=== PATIENT | male | born 1955 ===

== ENCOUNTER 2016-12-16 10:26 | Inpatient (IN) | payer OTHER ==
[2016-12-16 10:27] VITALS: BMI 21.6
[2016-12-16] MEDS ORDERED: Sodium Chloride 0.9% 500 ML IV ONE ×2 (10:53→11:27)
[2016-12-16 11:19] LABS: VENOUS BLOOD GAS BASE EXCESS -1.5 mmol/L (0.0-2.0); VENOUS BLOOD GAS PCO2 47 mmHg (40-60); VENOUS BLOOD PH 7.33 (7.32-7.43)
--- NOTE | 2016-12-16 11:27 | C.PDOC ---
History Of Present Illness 61-year-old male, PMHx includes Anemia, Hypertension, Hypothyroidism and SBO, BIBA for evaluation of vomiting and diarrhea, associated with fever since yesterday. Hx obtained by sister on the phone, patient is mentally delayed & bed bound. Patient was given Tylenol for fever by family, but fever eventually returned. Sister states he has had a mild, non-productive cough. She denies rash, SOB, sick contacts, or other symptoms. Time Seen by Provider: 12/16/16 10:34 Chief Complaint (Nursing): Fever History Per: Family History/Exam Limitations: other (nonverbal, mentally delayed) Onset/Duration Of Symptoms: Days (1) Current Symptoms Are (Timing): Still Present Sick Contacts (Context): None Associated Symptoms: Fever, Chills, Nausea, Vomiting Severity: Mild Past Medical History Reviewed: Historical Data, Nursing Documentation, Vital Signs Vital Signs: Last Vital Signs Temp 98.6 F 12/19/16 01:26 Pulse 83 12/19/16 01:26 Resp 20 12/19/16 01:26 BP 124/66 12/19/16 01:26 Pulse Ox 97 12/19/16 01:26 - Medical History PMH: Anemia, HTN, Hypothyroidism, Obstructive Bowel, Pneumonia - [facility] Procedures CENTRAL VENOUS CATHETER PLACEMENT WITH GUIDANCE (08/28/13) DX ULTRASOUND-HEART (03/26/13) IMPACTED FECES REMOVAL (12/20/12) INFUSION OF VASOPRESSOR AGENT (08/28/13) OTH INCIDENT APPENDECTOMY (01/04/13) PACKED CELL TRANSFUSION (01/21/13) [id number] BOWEL NEC (01/04/13) VACCINATION NEC (01/05/15) VENOUS CATHETERIZATION NEC (10/20/13) Family History: States: No Known Family Hx - Social History Hx Tobacco Use: No Hx Alcohol Use: No Hx Substance Use: No - Immunization History Hx Tetanus Toxoid Vaccination: No Hx Influenza Vaccination: Yes Hx Pneumococcal Vaccination: Yes Review Of Systems Except As Marked, All Systems Reviewed And Found Negative. Constitutional: Positive for: Fever Respiratory: Positive for: Cough. Negative for: Shortness of Breath, Sputum Gastrointestinal: Positive for: Nausea, Vomiting, Diarrhea. Negative for: Abdominal Pain Genitourinary: Negative for: Dysuria, Hematuria, Rash Skin: Negative for: Rash Physical Exam - Physical Exam Appears: Non-toxic, No Acute Distress, Other (awake and alert) Skin: Warm, Dry, No Rash Head: Atraumatic, Normacephalic Eye(s): bilateral: Normal Inspection, EOMI Nose: Normal Oral Mucosa: Moist Throat: Normal, No Erythema, No Exudate Neck: Normal, Normal ROM Chest: Symmetrical Cardiovascular: Rhythm Regular Respiratory: Normal Breath Sounds, No Accessory Muscle Use, No Rales, No Rhonchi , No Wheezing Gastrointestinal/Abdominal: Normal Exam, Bowel Sounds, Soft, No Tenderness, No Distention, No Guarding, No Rebound, Other (midline well healed surgical scar) Male Genital: Other (diaper) Extremity: Normal ROM, No Deformity Pulses: Left Dorsalis Pedis: Normal, Right Dorsalis Pedis: Normal Neurological/Psych: Other (awake, alert, moving all 4 extremities spontaneously) ED Course And Treatment - Laboratory Results Result Diagrams: 12/17/16 06:09 12/17/16 06:09 O2 Sat by Pulse Oximetry: 98 (RA) Pulse Ox Interpretation: Normal - Other Rad CXR X-Ray: Viewed By Me, Read By Radiologist Interpretation: Accession No. : [id number]. Patient Name / ID : LEVI PRUETT / [id number]. Exam Date : 12/16/2016 10:48:10 ( Approved ). Study Comment : Sex / Age : M / 61Y. Creator : Iliana Nieves MD. Dictator : Iliana Nieves MD. [employer] Drilling Machine Operator : Screen Examiner : Iliana Nieves MD. Approver2 : Report Date : 12/16/2016 14:29:52. My Comment : . HISTORY: fever. COMPARISON: Chest x-ray performed 04/07/15. TECHNIQUE: Chest, one view. FINDINGS: LUNGS: Moderate left and mild right interstitial prominence may reflect infection or edema. Please note that chest x-ray has limited sensitivity for the detection of pulmonary masses. PLEURA: No significant pleural effusion identified. No definite pneumothorax . CARDIOVASCULAR: Cardiomegaly. Ectatic aorta. Atherosclerotic calcifications. OSSEOUS STRUCTURES: Osseous demineralization. Degenerative changes. VISUALIZED UPPER ABDOMEN: Unremarkable. OTHER FINDINGS: None. IMPRESSION: Moderate left and mild right interstitial prominence may reflect infection or edema. Cardiomegaly. Ectatic aorta. Atherosclerotic calcifications. - CT Scan/US CT ABD/PEL Other Rad Studies (CT/US): Read By Radiologist, Radiology Report Reviewed CT/US Interpretation: Accession No. : [id number]. Patient Name / ID : LEVI PRUETT / [id number]. Exam Date : 12/16/2016 12:45:39 ( Approved ). Study Comment : Sex / Age : M / 61Y. Creator : Iliana Nieves MD. Dictator : Iliana Nieves MD. [employer] Drilling Machine Operator : Screen Examiner : Iliana Nieves MD. Approver2 : Report Date : 12/16/2016 13:48:16. My Comment : . PROCEDURE: CT Abdomen and Pelvis without Oral or IV contrast. HISTORY: nausea/vomiting/diarrhea, fever. COMPARISON: CT abdomen and pelvis performed . TECHNIQUE: Contiguous axial images of the abdomen and pelvis. No oral or IV contrast administered. Coronal and Sagittal reformats generated and reviewed. Radiation dose: Total exam DLP = 226.82 mGy-cm. This CT exam was performed using one or more of the following dose reduction techniques: Automated exposure control, adjustment of the mA and/or kV according to patient size, and/or use of iterative reconstruction technique. FINDINGS: Examination markedly limited due to absence of oral or IV contrast as well as paucity of intra-abdominal and intrapelvic fat. LOWER THORAX: Bibasilar lower lobe consolidations. No visible pleural effusion or pneumothorax. Partially imaged heart demonstrates dense valvular calcifications. Small hiatal hernia. LIVER: Unremarkable unenhanced appearance. GALLBLADDER AND BILE DUCTS: Unremarkable unenhanced appearance. PANCREAS: Poorly visualized. Apparent atrophy. Otherwise grossly unremarkable. SPLEEN: Unremarkable unenhanced appearance. ADRENALS: Unremarkable unenhanced appearance. KIDNEYS AND URETERS : No hydronephrosis or obstructing renal calculus. BLADDER: Thick-walled under distended urinary bladder. Plate clinically including urinalysis. REPRODUCTIVE: Limited evaluation of the prostate gland. Recommend correlation with PSA. APPENDIX: No secondary signs of acute appendicitis. BOWEL: The stomach is nondistended. Lack of oral contrast limits evaluation for bowel pathology. Small abdominal wall hernia containing bowel with evidence of proximal bowel dilatation worrisome for obstruction. Correlate clinically. Regions of severe constipation. Distended fluid-filled and thick-walled rectum ; correlate clinically for proctitis and diarrheal illness. PERITONEUM: No significant free fluid. No definite free air. LYMPH NODES: No bulky lymphadenopathy identified. VASCULATURE: No aortic aneurysm. BONES: Mild degenerative changes. OTHER FINDINGS: Fat containing left inguinal hernia ; portion of the urinary bladder breaches inguinal hernia. IMPRESSION: Small abdominal wall hernia containing bowel with evidence of proximal bowel dilatation worrisome for obstruction. Correlate clinically. Regions of severe constipation. Distended fluid-filled and thick-walled rectum ; correlate clinically for proctitis and diarrheal illness. Bibasilar lower lobe consolidations. Progress Note: Bloodwork, CT Abd/Pel, EKG, CXR and UA ordered and reviewed. Patient given IV NS bolus, IV toradol. UA shows UTI, IV rocephin ordered. 12: 45-Code sepsis called. Patient has CHF history according to sister, and CXR appears congsted - will not give 30ml/kg bolus at this time. - Physician Consult Information Physician Contacted: Fina Matamoros Outcome Of Conversation: Discussed patient with Dr. Matamoros, she agrees with admission for fever, uti, sepsis, bandemia. Patient's vitals stable at this time, will admit to telemetry. Critical Care Time - Critical Care Note Total Time (in mins): 35 Documented critical care: time excludes all time spent performing seperately billable procedures. Disposition - Disposition Disposition Time: 13:09 Condition: FAIR - Clinical Impression Clinical Impression: UTI (urinary tract infection), Bandemia, Fever, Sepsis - Scribe Statement The provider has reviewed the documentation as recorded by the Liliana Morales All medical record entries made by the Scribe were at my direction and personally dictated by me. I have reviewed the chart and agree that the record accurately reflects my personal performance of the history, physical exam, medical decision making, and the department course for this patient. I have also personally directed, reviewed, and agree with the discharge instructions and disposition. Decision To Admit - Pt Status Changed To: Hospital Disposition Of: Inpatient - Admit Certification Admit to Inpatient:: After my assessment, the patient will require hospitalization for at least two midnights. This is because of the severity of symptoms shown, intensity of services needed, and/or the medical risk in this patient being treated as an outpatient. - InPatient: Physician Admission Certification:: SEE NOTES - . Bed Request Type: Telemetry Admitting Physician: Fina Mtaamoros Patient Diagnosis: Fever, Sepsis, UTI (urinary tract infection), Bandemia
[2016-12-16 11:57] LABS: BASO % 0.4 % (0.0-2.0); EOS % 0.1 % (0.0-4.0); HEMATOCRIT 42.4 % (35.0-51.0); LYMPH # 0.8 K/uL (1.0-4.3); MEAN CELL VOLUME 101.7 fL (80.0-94.0); MEAN CORPUSCULAR HEMOGLOBIN 34.3 pg (27.0-31.0); MEAN CORPUSCULAR HGB CONC 33.8 g/dL (33.0-37.0); MEAN PLATELET VOLUME 6.9 fL (7.2-11.7); MONO # 0.2 K/uL (0.0-0.8); MONO % 1.6 % (0.0-10.0); PLATELET COUNT 184 K/uL (130-400); RED CELL DISTRIBUTION WIDTH 13.6 % (11.5-14.5); WHITE BLOOD COUNT 9.5 K/uL (4.8-10.8)
[2016-12-16 12:06] LABS: CHLORIDE 97 mmol/L (98-107)
[2016-12-16 12:07] LABS: POTASSIUM 4.8 mmol/L (3.6-5.2); SODIUM 134 mmol/L (132-148)
[2016-12-16 12:09] LABS: ALB/GLOB RATIO 1.1 (1.0-2.1); AST/SGOT 49 U/L (17-59); BILIRUBIN,TOTAL 1.4 mg/dL (0.2-1.3); BLOOD UREA NITROGEN 16 mg/dL (9-20); CARBON DIOXIDE 25 mmol/L (22-30); GFR AFRICAN-AMERICAN > 60; TOTAL PROTEIN 8.2 g/dL (6.3-8.3)
[2016-12-16 12:10] LABS: ALKALINE PHOSPHATASE 65 U/L (38-126); ALT/SGPT 22 U/L (21-72); CALCIUM 9.4 mg/dl (8.6-10.4); GLUCOSE,RANDOM 110 mg/dL (75-110)
[2016-12-16 12:13] LABS: RBC URINE 2 /hpf (0-3); URINE BACTERIA MANY (<OCC); URINE BILIRUBIN NEGATIVE (NEGATIVE); URINE BLOOD 1+ (NEGATIVE); URINE COLOR Yellow (YELLOW); URINE GLUCOSE (UA) NORMAL (Normal); URINE KETONE NEGATIVE (NEGATIVE); URINE LEUKOCYTE ESTERASE 1+ Leu/uL (Negative); URINE PROTEIN NEGATIVE (NEGATIVE); URINE UROBILINOGEN NORMAL mg/dL (0.2-1.0); WBC URINE 33 /hpf (0-5)
[2016-12-16] MEDS ORDERED: cefTRIAXone IV 1 gm in Dextros 50 ML IV ONE (12:19)
[2016-12-16] MEDS ORDERED: cefTRIAXone IV 1 gm in Dextros 50 ML IVPB ONE (12:33)
[2016-12-16 12:41] LABS: EOSINOPHIL 2 % (0-4); NEUTROPHIL 69 % (50-75); TOTAL CELLS COUNTED 100
[2016-12-16] MEDS ORDERED: Sodium Chloride 0.9% 250 ML IV ONE ×3 (13:05→14:14)
--- NOTE | 2016-12-16 13:49 | CT ---
PROCEDURE: CT Abdomen and Pelvis without Oral or IV contrast. HISTORY: nausea/vomiting/diarrhea, fever COMPARISON: CT abdomen and pelvis performed 10/14/14 TECHNIQUE: Contiguous axial images of the abdomen and pelvis. No oral or IV contrast administered. Coronal and Sagittal reformats generated and reviewed. Radiation dose: Total exam DLP = 226.82 mGy-cm. This CT exam was performed using one or more of the following dose reduction techniques: Automated exposure control, adjustment of the mA and/or kV according to patient size, and/or use of iterative reconstruction technique. FINDINGS: Examination markedly limited due to absence of oral or IV contrast as well as paucity of intra-abdominal and intrapelvic fat. LOWER THORAX: Bibasilar lower lobe consolidations. No visible pleural effusion or pneumothorax. Partially imaged heart demonstrates dense valvular calcifications. Small hiatal hernia. LIVER: Unremarkable unenhanced appearance. GALLBLADDER AND BILE DUCTS: Unremarkable unenhanced appearance. PANCREAS: Poorly visualized. Apparent atrophy. Otherwise grossly unremarkable. SPLEEN: Unremarkable unenhanced appearance. ADRENALS: Unremarkable unenhanced appearance. KIDNEYS AND URETERS: No hydronephrosis or obstructing renal calculus. BLADDER: Thick-walled under distended urinary bladder. Plate clinically including urinalysis. REPRODUCTIVE: Limited evaluation of the prostate gland. Recommend correlation with PSA. APPENDIX: No secondary signs of acute appendicitis. BOWEL: The stomach is nondistended. Lack of oral contrast limits evaluation for bowel pathology. Small abdominal wall hernia containing bowel with evidence of proximal bowel dilatation worrisome for obstruction. Correlate clinically. Regions of severe constipation. Distended fluid-filled and thick-walled rectum ; correlate clinically for proctitis and diarrheal illness. PERITONEUM: No significant free fluid. No definite free air. LYMPH NODES: No bulky lymphadenopathy identified. VASCULATURE: No aortic aneurysm. BONES: Mild degenerative changes. OTHER FINDINGS: Fat containing left inguinal hernia ; portion of the urinary bladder breaches inguinal hernia. IMPRESSION: Small abdominal wall hernia containing bowel with evidence of proximal bowel dilatation worrisome for obstruction. Correlate clinically. Regions of severe constipation. Distended fluid-filled and thick-walled rectum ; correlate clinically for proctitis and diarrheal illness. Bibasilar lower lobe consolidations.
[2016-12-16 14:17] LABS: VENOUS BLOOD GAS BASE EXCESS -2.6 mmol/L (0.0-2.0); VENOUS BLOOD GAS PCO2 46 mmHg (40-60); VENOUS BLOOD PH 7.32 (7.32-7.43)
[2016-12-16 14:24] LABS: THYROID STIMULATING HORMONE 0.65 mIU/L (0.46-4.68)
--- NOTE | 2016-12-16 14:31 | RAD ---
HISTORY: fever COMPARISON: Chest x-ray performed 04/07/15 TECHNIQUE: Chest, one view. FINDINGS: LUNGS: Moderate left and mild right interstitial prominence may reflect infection or edema. Please note that chest x-ray has limited sensitivity for the detection of pulmonary masses. PLEURA: No significant pleural effusion identified. No definite pneumothorax . CARDIOVASCULAR: Cardiomegaly. Ectatic aorta. Atherosclerotic calcifications. OSSEOUS STRUCTURES: Osseous demineralization. Degenerative changes. VISUALIZED UPPER ABDOMEN: Unremarkable. OTHER FINDINGS: None. IMPRESSION: Moderate left and mild right interstitial prominence may reflect infection or edema. Cardiomegaly. Ectatic aorta. Atherosclerotic calcifications.
--- NOTE | 2016-12-16 16:04 | CP.PCM.CON ---
History of Present Illness - History of Present Illness History of Present Illness: 61-year-old male, PMHx includes Anemia, Hypertension, Hypothyroidism and Obstructive bowel, presents to the emergency department, Hx obtained by sister on the phone, with complaints of non-bloody vomiting and diarrhea, that is associated with fever since yesterday. Patient was given Tylenol for fever which went down initially, and returned. Admits to a mild, non-productive cough. No rashes, shortness of breath, sick contacts, or other associated symptoms. Patient is bed bound and mentally delayed. All other Hx limited because patient is non-verbal at baseline. - Medical History PMH: Anemia, HTN, Hypothyroidism, Obstructive Bowel, Pneumonia - [facility] Procedures CENTRAL VENOUS CATHETER PLACEMENT WITH GUIDANCE (08/28/13) DX ULTRASOUND-HEART (03/26/13) IMPACTED FECES REMOVAL (12/20/12) INFUSION OF VASOPRESSOR AGENT (08/28/13) OTH INCIDENT APPENDECTOMY (01/04/13) PACKED CELL TRANSFUSION (01/21/13) [id number] BOWEL NEC (01/04/13) VACCINATION NEC (01/05/15) VENOUS CATHETERIZATION NEC (10/20/13) Review Of Systems Review Of Systems: ROS cannot be obtained secondary to pt's inabilty to answer questions. Constitutional: Positive for: Fever Respiratory: Positive for: Cough. Negative for: Shortness of Breath, Sputum Gastrointestinal: Positive for: Vomiting, Diarrhea Genitourinary: Negative for: Incontinence, Hematuria, Rash Skin: Negative for: Rash Physical Exam - Physical Exam Appears: No Acute Distress, Other (awake and alert) Skin: Warm, Dry, No Rash Head: Atraumatic, Normacephalic Eye(s): bilateral: Normal Inspection, PERRL Nose: Normal Lips: Normal Appearing Neck: Normal ROM Chest: Symmetrical Cardiovascular: Rhythm Regular Respiratory: Normal Breath Sounds, No Accessory Muscle Use Gastrointestinal/Abdominal: Soft, No Tenderness, Other (midline scar, well- healed.) Male Genital: Other (Patient is wearing a diaper.) Past Patient History - Infectious Disease Hx of Infectious Diseases: C.diff - Past Medical History & Family History Past Medical History?: Yes - Past Social History Smoking Status: Never Smoked - CARDIAC Hx Hypertension: Yes - PULMONARY Hx Pneumonia: Yes - NEUROLOGICAL Hx Neurological Disorder: Yes Other/Comment: hx down syndrome - HEENT Hx HEENT Problems: No - RENAL Hx Chronic Kidney Disease: No - ENDOCRINE/METABOLIC Hx Hypothyroidism: Yes - HEMATOLOGICAL/ONCOLOGICAL Hx Anemia: Yes - INTEGUMENTARY Hx Dermatological Problems: No - MUSCULOSKELETAL/RHEUMATOLOGICAL Hx Musculoskeletal Disorders: No - GASTROINTESTINAL Hx Gastrointestinal Disorders: Yes Other/Comment: hx obstinal obstruction had surgery - GENITOURINARY/GYNECOLOGICAL Other/Comment: Hx: pyelonephritis Incontinent of urine. - PSYCHIATRIC Hx Substance Use: No Other/Comment: Down Syndrome - SURGICAL HISTORY Hx Surgeries: Yes Other/Comment: Large intestine bypass (small intestine to sigmoid) 2013 - ANESTHESIA Hx Anesthesia: Yes Hx Anesthesia Reactions: No Hx Malignant Hyperthermia: No Meds Allergies/Adverse Reactions: Allergies Allergy/AdvReac Type Severity Reaction Status Date / Time No Known Allergies Allergy Verified 12/16/15 19:16 Results - Vital Signs Recent Vital Signs: Last Vital Signs Temp 99.9 F H 12/16/16 13:27 Pulse 62 12/16/16 14:37 Resp 18 12/16/16 14:37 BP 101/57 L 12/16/16 14:37 Pulse Ox 99 12/16/16 14:37 - Labs Result Diagrams: 12/16/16 11:50 12/16/16 11:50 Labs: Laboratory Results - last 24 hr 12/16/16 14:10 pO2 20 L VBG pH 7.32 VBG pCO2 46 VBG HCO3 21.0 VBG Total CO2 25.1 VBG O2 Sat (Calc) 37.2 L VBG Base Excess -2.6 L VBG Potassium 4.5 Sodium 135.0 Chloride 104.0 Glucose 93 Lactate 1.9 Venous Blood Potassium 4.5
[2016-12-16] MEDS: Sodium Chloride 0.9% 1,000 ML IV SCH (18:26)
[2016-12-16] MEDS: Cefepime IV 1 gm in Dextrose 1 GM/50 ML BAG IVPB SCH (19:00)
[2016-12-17] MEDS: Cefepime IV 1 gm in Dextrose 1 GM/50 ML BAG IVPB SCH ×2 (05:31→17:35)
[2016-12-17 06:41] LABS: CHLORIDE 101 mmol/L (98-107); SODIUM 129 mmol/L (132-148)
[2016-12-17 06:42] LABS: POTASSIUM 4.7 mmol/L (3.6-5.2)
[2016-12-17 06:44] LABS: ALB/GLOB RATIO 0.9 (1.0-2.1); ALKALINE PHOSPHATASE 63 U/L (38-126); AST/SGOT 38 U/L (17-59); BILIRUBIN,TOTAL 0.6 mg/dL (0.2-1.3); BLOOD UREA NITROGEN 19 mg/dL (9-20); CARBON DIOXIDE 22 mmol/L (22-30); GFR AFRICAN-AMERICAN > 60; TOTAL PROTEIN 6.4 g/dL (6.3-8.3)
[2016-12-17 06:45] LABS: ALT/SGPT 24 U/L (21-72); CALCIUM 7.8 mg/dl (8.6-10.4); GLUCOSE,RANDOM 98 mg/dL (75-110)
[2016-12-17 07:05] LABS: HEMATOCRIT 36.2 % (35.0-51.0); MEAN CELL VOLUME 102.6 fL (80.0-94.0); MEAN CORPUSCULAR HEMOGLOBIN 34.4 pg (27.0-31.0); WHITE BLOOD COUNT 8.5 K/uL (4.8-10.8)
[2016-12-17 07:06] LABS: BASO % 0.4 % (0.0-2.0); EOS % 0.3 % (0.0-4.0); LYMPH # 1.1 K/uL (1.0-4.3); LYMPH % 12.9 % (20.0-40.0); MEAN CORPUSCULAR HGB CONC 33.5 g/dL (33.0-37.0); MEAN PLATELET VOLUME 7.3 fL (7.2-11.7); MONO # 0.3 K/uL (0.0-0.8); MONO % 3.7 % (0.0-10.0); NRBC % 0.1 % (0.0-2.0); RED CELL DISTRIBUTION WIDTH 13.6 % (11.5-14.5)
[2016-12-17] MEDS: Sodium Chloride 0.9% 1,000 ML IV SCH (08:58)
--- NOTE | 2016-12-17 13:01 | PN ---
DATE: 12/17/2016 LOCATION: 653, bed A. This is a 61-year-old male seen and examined for GI consultation on 12/16/2016 as requested by the [facility] medical team, reexamined again today with reported incontinence of stool as well as urine at some times. The patient reported no evidence of active bleeding, but generalized weakness and malaise. The r e chart is reviewed including, but not limited to, the most recent lab and radiology study results, c urrent and previous medication lists, current and the previous medical events. The case discussed wi th the staff at length on the floor. Today's labs showed low sodium 129 with low calcium 7.8 and low albumin 3.0. CAT scan of the abdomen and the pelvis done yesterday. Report and the films are seen with possible p roctitis and evidence of constipation. Official report is seen. PHYSICAL EXAMINATION: GENERAL: A 61-year-old male. VITAL SIGNS: Afebrile with pulse of 64, respiratory rate 20-22, blood pressure 104/56. HEENT: Showed pale, dry oral mucoid membrane. Nonicteric sclerae. LUNGS: A few scattered crepitation. Decreased air entry at bases. HEART: Positive S1 and S2. ABDOMEN: Soft. Bowel sounds are present with mild generalized tenderness. No mass or organomegaly. No rebound tenderness or guarding. RECTAL: The patient refused. EXTREMITIES: Without reported edema, clubbing or cyanosis. NEUROLOGIC: No new reported neurological deficits, sensory or motor. IMPRESSION: 1. Reexacerbation of peptic ulcer disease. No reported nausea or vomiting this morning. 2. Change of bowel movement habit of unclear etiology. 3. Nonproductive cough by recent history with evidence of bronchitis. 4. Known history of, but not limited to, hypertension, hypothyroidism and pneumonia. 5. Electrolyte imbalance with hypocalcemia, hyponatremia. 6. Abnormal CAT scan of the abdomen and the pelvis. 7. A small abdominal wall hernia with questionable obstruction. SUGGESTION: 1. Agree with your plan. 2. Surgical reevaluation. 3. Endoscopic evaluation of the GI tract only when the patient is more stable clinically. 4. Cancer markers including, but not limited to, CEA and CA 19-9 as well as PSA. Joon Caceres MD cc: 14 TT: 12/17/2016 13:01:04 Confirmation # [id number] Dictation # [id number] mn
--- NOTE | 2016-12-17 13:32 | CP.PCM.CON ---
History of Present Illness - History of Present Illness History of Present Illness: 61 year old man with following chronic medical conditions 1. Downs Syndrome 2. Biscupid aortic valve - chronic and stable 3. 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 Past Patient History - Infectious Disease Hx of Infectious Diseases: C.diff - Past Medical History & Family History Past Medical History?: Yes - Past Social History Smoking Status: Never Smoked - CARDIAC Hx Hypertension: Yes - PULMONARY Hx Pneumonia: Yes - NEUROLOGICAL Hx Neurological Disorder: Yes Other/Comment: hx down syndrome - HEENT Hx HEENT Problems: No - RENAL Hx Chronic Kidney Disease: No - ENDOCRINE/METABOLIC Hx Hypothyroidism: Yes - HEMATOLOGICAL/ONCOLOGICAL Hx Anemia: Yes - INTEGUMENTARY Hx Dermatological Problems: No - MUSCULOSKELETAL/RHEUMATOLOGICAL Hx Musculoskeletal Disorders: No - GASTROINTESTINAL Hx Gastrointestinal Disorders: Yes Other/Comment: hx obstinal obstruction had surgery - GENITOURINARY/GYNECOLOGICAL Other/Comment: Hx: pyelonephritis Incontinent of urine. 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 - ANESTHESIA Hx Anesthesia: Yes Hx Anesthesia Reactions: No Hx Malignant Hyperthermia: No Meds Allergies/Adverse Reactions: Allergies Allergy/AdvReac Type Severity Reaction Status Date / Time No Known Allergies Allergy Verified 12/16/15 19:16 - Medications Medications: Current Medications Heparin Sodium (Porcine) (Heparin) 5,000 units SC Q8 [facility] Last Admin: 12/17/16 05:36 Dose: 5,000 units Cefepime HCl (Maxipime Iv 1 Gm Premix) 1 gm in 50 mls @ 100 mls/hr IVPB Q12H [facility] Last Admin: 12/17/16 05:31 Dose: 100 mls/hr Sodium Chloride (Sodium Chloride 0.9%) 1,000 mls @ 60 mls/hr IV .[id number] [facility] Last Admin: 12/16/16 18:26 Dose: 60 mls/hr Pantoprazole Sodium (Protonix Inj) 40 mg IVP DAILY [facility] Last Admin: 12/17/16 09:37 Dose: 40 mg Physical Exam - Constitutional Appears: Agitated, Confused - Head Exam Head Exam: ATRAUMATIC Additional comments: Temporal wasting - Eye Exam Eye Exam: PERRL. absent: Scleral icterus - ENT Exam ENT Exam: Mucous Membranes Dry, Normal External Ear Exam Additional comments: Downs facies - Respiratory Exam Respiratory Exam: Prolonged Expiratory Phase Additional comments: +Rhonci - Cardiovascular Exam Cardiovascular Exam: REGULAR RHYTHM, RRR, +S1, +S2, Systolic Murmur. absent: JVD - GI/Abdominal Exam GI & Abdominal Exam: Tenderness. absent: Organomegaly, Rebound - Neurological Exam Additional comments: Awake, non verbal - Psychiatric Exam Psychiatric exam: Agitated, Anxious Results - Vital Signs Recent Vital Signs: Last Vital Signs Temp 98.0 F 12/17/16 08:40 Pulse 60 12/17/16 08:40 Resp 20 12/17/16 08:40 BP 100/59 L 12/17/16 08:40 Pulse Ox 98 12/17/16 08:40 - Labs Result Diagrams: 12/17/16 06:09 12/17/16 06:09 Labs: Laboratory Results - last 24 hr 12/16/16 12/17/16 12/17/16 14:10 06:09 06:09 WBC 8.5 RBC 3.53 L Hgb 12.1 D Hct 36.2 MCV 102.6 H MCH 34.4 H MCHC 33.5 RDW 13.6 Plt Count 148 MPV 7.3 Neut % (Auto) 82.7 H Lymph % (Auto) 12.9 L Slope % (Auto) 3.7 Eos % (Auto) 0.3 Baso % (Auto) 0.4 Neut # 7.1 H Lymph # 1.1 Slope # 0.3 Eos # 0.0 Baso # 0.0 pO2 20 L VBG pH 7.32 VBG pCO2 46 VBG HCO3 21.0 VBG Total CO2 25.1 VBG O2 Sat (Calc) 37.2 L VBG Base Excess -2.6 L VBG Potassium 4.5 Sodium 135.0 129 L Chloride 104.0 101 Glucose 93 Lactate 1.9 Potassium 4.7 Carbon Dioxide 22 Anion Gap 10 BUN 19 Creatinine 0.7 L Est GFR ( Amer) > 60 Est GFR (Non-Af Amer) > 60 Random Glucose 98 Calcium 7.8 L Total Bilirubin 0.6 AST 38 ALT 24 Alkaline Phosphatase 63 Total Protein 6.4 Albumin 3.0 L D Globulin 3.4 Albumin/Globulin Ratio 0.9 L Venous Blood Potassium 4.5 - EKG Data EKG Interpreted by: Myself EKG shows normal: Sinus rhythm - Imaging and Cardiology Chest x-ray Additional comment: Left upper lobe infiltrate Assessment & Plan - Assessment and Plan (Free Text) Assessment: 61 year old man with shortness of breath likely due to PNA, abx and supportive care. 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
[2016-12-17 13:39] LABS: CA 19-9 5.3 U/mL (0-37)
--- NOTE | 2016-12-17 17:21 | CP.PCM.PN ---
Subjective - Date & Time of Evaluation Date of Evaluation: 12/17/16 Time of Evaluation: 10:00 - Subjective Subjective: urine c/s positive weak and bedridden iv rx reordered Objective - Vital Signs/Intake and Output Vital Signs (last 24 hours): Temp Pulse Resp BP Pulse Ox 97.9 F 66 20 99/66 L 99 12/17/16 15:38 12/17/16 15:38 12/17/16 15:38 12/17/16 15:38 12/17/16 15:38 Intake and Output: 12/17/16 12/17/16 06:59 18:59 Intake Total 420 700 Output Total 2 Balance 418 700 - Medications Medications: Current Medications Heparin Sodium (Porcine) (Heparin) 5,000 units SC Q8 [facility] Last Admin: 12/17/16 13:40 Dose: 5,000 units Cefepime HCl (Maxipime Iv 1 Gm Premix) 1 gm in 50 mls @ 100 mls/hr IVPB Q12H [facility] Last Admin: 12/17/16 05:31 Dose: 100 mls/hr Sodium Chloride (Sodium Chloride 0.9%) 1,000 mls @ 60 mls/hr IV .[id number] [facility] Last Admin: 12/17/16 08:58 Dose: Not Given Pantoprazole Sodium (Protonix Inj) 40 mg IVP DAILY [facility] Last Admin: 12/17/16 09:37 Dose: 40 mg - Labs Labs: 12/17/16 06:09 12/17/16 06:09 - Constitutional Appears: Non-toxic, Confused, Cachectic, Chronically Ill - Head Exam Head Exam: NORMOCEPHALIC - Eye Exam Eye Exam: PERRL. absent: Scleral icterus - ENT Exam ENT Exam: Mucous Membranes Dry - Neck Exam Neck Exam: absent: Lymphadenopathy - Respiratory Exam Respiratory Exam: Decreased Breath Sounds, Rhonchi - Cardiovascular Exam Cardiovascular Exam: REGULAR RHYTHM, +S1, +S2 - GI/Abdominal Exam GI & Abdominal Exam: Distended, Soft Assessment and Plan (1) Febrile illness, acute Status: Acute (2) Gastroenteritis Status: Acute (3) Pneumonia Status: Suspected
[2016-12-18] MEDS: Sodium Chloride 0.9% 1,000 ML IV SCH ×3 (00:04→17:12)
[2016-12-18] MEDS: Cefepime IV 1 gm in Dextrose 1 GM/50 ML BAG IVPB SCH ×2 (05:45→17:11)
--- NOTE | 2016-12-18 11:06 | PN ---
DATE: 12/18/2016 LOCATION: 653, bed A. This is a 61-year-old male, seen and examined in rounds with very poor appetite, fed with help with r eported high risk of aspiration. The entire chart is reviewed including, but not limited to, the most recent lab and radiology study r esults, current and previous medication lists, current and previous medical events and the patient st ill has normal hemoglobin and hematocrit with normal white blood cells, but low sodium 129 with low c alcium and low albumin. Stool for occult blood was reported to be negative. Official report of abdominal CAT scan and pelvic CAT scan was reviewed again, reports seen. The patient is still complaining of intermittent periods of abdominal pain with abdominal distention. Urinalysis report is seen. No reported active bleeding. PHYSICAL EXAMINATION: GENERAL: A 61-year-old male. VITAL SIGNS: Afebrile with heart rate of 60, respiratory rate 20-22, blood pressure 110/64. HEENT: Showed pale, dry oral mucoid membrane. Nonicteric sclerae. LUNGS: Few scattered crepitation, decreased air entry at bases. HEART: Positive S1 and S2. ABDOMEN: Soft. Bowel sounds are present with mild distention. No mass or organomegaly. No rebound tenderness or guarding. EXTREMITIES: With edematous changes. The patient is a bit red. NEUROLOGIC: No reported new neurological deficits, sensory or motor. IMPRESSION: 1. Reexacerbation of peptic ulcer disease. 2. Dysphagia. 3. Malnutrition. 4. Nonproductive cough with recurrent bronchitis. 5. Known history of, but not limited to, hypothyroidism, hypertension and pneumonia. 6. Electrolyte imbalance with hyponatremia, hypocalcemia. 7. Small abdominal wall hernia with questionable obstruction. 8. Abnormal CAT scan of the abdomen and the pelvis. 9. Known history of, but not limited to, anemia. SUGGESTION: 1. Continue current management. 2. Surgical reevaluation. 3. Small bowel follow through. 4. Central hyperalimentation. 5. Antireflux measures. 6. No need for aggressive gastrointestinal workup in the meantime. However, the patient may need, i n the long, percutaneous endoscopic gastrostomy insertion. Joon Caceres MD cc: 14 TT: 12/18/2016 11:06:09 Confirmation # [id number] Dictation # [id number] en
--- NOTE | 2016-12-18 15:58 | CP.PCM.PN ---
Subjective - Date & Time of Evaluation Date of Evaluation: 12/18/16 Time of Evaluation: 10:00 - Subjective Subjective: afebrile weak and bedridden' cultures noted Objective - Vital Signs/Intake and Output Vital Signs (last 24 hours): Temp Pulse Resp BP Pulse Ox 97 F L 75 20 124/61 98 12/18/16 15:00 12/18/16 15:00 12/18/16 15:00 12/18/16 15:00 12/18/16 15:00 Intake and Output: 12/18/16 12/18/16 06:59 18:59 Intake Total 680 Balance 680 - Medications Medications: Current Medications Heparin Sodium (Porcine) (Heparin) 5,000 units SC Q8 [facility] Last Admin: 12/18/16 13:02 Dose: 5,000 units Cefepime HCl (Maxipime Iv 1 Gm Premix) 1 gm in 50 mls @ 100 mls/hr IVPB Q12H [facility] Last Admin: 12/18/16 05:45 Dose: 100 mls/hr Sodium Chloride (Sodium Chloride 0.9%) 1,000 mls @ 60 mls/hr IV .[id number] [facility] Last Admin: 12/18/16 01:40 Dose: Not Given Pantoprazole Sodium (Protonix Inj) 40 mg IVP DAILY [facility] Last Admin: 12/18/16 09:10 Dose: 40 mg - Labs Labs: 12/17/16 06:09 12/17/16 06:09 - Constitutional Appears: Non-toxic - Head Exam Head Exam: NORMOCEPHALIC - Eye Exam Eye Exam: PERRL. absent: Scleral icterus - ENT Exam ENT Exam: Mucous Membranes Dry - Neck Exam Neck Exam: absent: Lymphadenopathy - Respiratory Exam Respiratory Exam: Decreased Breath Sounds, Rhonchi - Cardiovascular Exam Cardiovascular Exam: REGULAR RHYTHM, +S1, +S2 - GI/Abdominal Exam GI & Abdominal Exam: Distended, Soft. absent: Tenderness Assessment and Plan (1) Febrile illness, acute Status: Acute (2) Gastroenteritis Status: Acute (3) Pneumonia Status: Suspected
[2016-12-19] MEDS: Cefepime IV 1 gm in Dextrose 1 GM/50 ML BAG IVPB SCH ×2 (05:28→18:24)
[2016-12-19] MEDS: Sodium Chloride 0.9% 1,000 ML IV SCH ×2 (09:52→18:24)
--- NOTE | 2016-12-19 12:03 | PN ---
DATE: 12/19/2016 LOCATION: 653, bed A. This is a 61-year-old male seen and examined at rounds today without reported significant clinical ch anges with again poor oral intake. No reported active bleeding. The entire chart is reviewed, inclu ding but not limited to the most recent lab and radiology study results, current and previous medicat ion lists, current and the previous medical events. The patient still has low albumin and low total protein, but normal hemoglobin and hematocrit. Case discussed at length with the staff on the floor. PHYSICAL EXAMINATION: GENERAL: A 61-year-old male. VITAL SIGNS: Afebrile with pulse of 60, respiratory rate of 18-20 with blood pressure of 116/56. HEENT: Showed pale, dry oral mucoid membrane. Nonicteric sclerae. LUNGS: Few scattered crepitation, decreased air entry at bases. HEART: Positive S1 and S2. ABDOMEN: Soft. Bowel sounds are present but hypoactive. No mass or organomegaly. EXTREMITIES: Lower extremities edematous changes. No clubbing or cyanosis. NEUROLOGIC: No reported new neurological deficits, sensory or motor. It has to be mentioned that the patient is still weak and bedridden with recurrent complaint of gener alized weakness and malaise. IMPRESSION: 1. Acute gastroenteritis. 2. Pneumonia by recent history, on antibiotics. 3. Reexacerbation of peptic ulcer disease. 4. Malnutrition with hypoalbuminemia. 5. Reported dysphagia before. 6. Known history of, but not limited to, hypertension, hypothyroidism. 7. Abnormal CAT scan of the abdomen and the pelvis indicative also of abdominal wall hernia with que stionable partial obstruction. 8. Anemia secondary above by history. SUGGESTION: 1. Agree with your plan. 2. Central hyperalimentation. 3. Calorie counting. 4. Insertion surgical reevaluation. 5. Flat and upright abdominal x-ray. 6. No aggressive GI workup in the meantime until the patient is more stable clinically, otherwise cl ose observation to follow. Joon Caceres MD cc: 14 TT: 12/19/2016 12:02:58 Confirmation # [id number] Dictation # [id number] cyndi
--- NOTE | 2016-12-19 15:49 | CP.PCM.HP ---
History of Present Illness - History of Present Illness History of Present Illness: pt brought in to er for fever at home has uti Present on Admission - Present on Admission Any Indicators Present on Admission: No Review of Systems - Review of Systems Systems not reviewed;Unavailable: Acuity of Condition - Constitutional Constitutional: Anorexia, Weight Loss - EENT Ears: Decreased Hearing Nose/Mouth/Throat: As Per HPI - Cardiovascular Additional comments: a s - Respiratory Respiratory: As Per HPI - Gastrointestinal Gastrointestinal: Bloating, Diarrhea - Genitourinary Genitourinary: Urinary Frequency - Musculoskeletal Musculoskeletal: Muscle Weakness - Integumentary Integumentary: Alopecia, Dry Skin - Neurological Neurological: Abnormal Gait, Frequent Falls, Lack of Coordination, Memory Loss, Weakness - Psychiatric Psychiatric: Depression - Endocrine Endocrine: Change in Body Appearance - Hematologic/Lymphatic Hematologic: As Per HPI Past Patient History - Infectious Disease Hx of Infectious Diseases: C.diff - Past Medical History & Family History Past Medical History?: Yes - Past Social History Smoking Status: Never Smoked - CARDIAC Hx Hypertension: Yes - PULMONARY Hx Pneumonia: Yes - NEUROLOGICAL Hx Neurological Disorder: Yes Other/Comment: hx down syndrome - HEENT Hx HEENT Problems: No - RENAL Hx Chronic Kidney Disease: No - ENDOCRINE/METABOLIC Hx Hypothyroidism: Yes - HEMATOLOGICAL/ONCOLOGICAL Hx Anemia: Yes - INTEGUMENTARY Hx Dermatological Problems: No - MUSCULOSKELETAL/RHEUMATOLOGICAL Hx Musculoskeletal Disorders: No - GASTROINTESTINAL Hx Gastrointestinal Disorders: Yes Other/Comment: hx obstinal obstruction had surgery - GENITOURINARY/GYNECOLOGICAL Other/Comment: Hx: pyelonephritis Incontinent of urine. 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 - ANESTHESIA Hx Anesthesia: Yes Hx Anesthesia Reactions: No Hx Malignant Hyperthermia: No Meds Allergies/Adverse Reactions: Allergies Allergy/AdvReac Type Severity Reaction Status Date / Time No Known Allergies Allergy Verified 12/16/15 19:16 Physical Exam - Constitutional Appears: Older Than Stated Age, Cachectic, Chronically Ill - Head Exam Head Exam: ATRAUMATIC - Eye Exam Eye Exam: Normal appearance - ENT Exam ENT Exam: Mucous Membranes Dry - Cardiovascular Exam Cardiovascular Exam: REGULAR RHYTHM, Systolic Murmur - GI/Abdominal Exam GI & Abdominal Exam: Guarding, Normal Bowel Sounds - Rectal Exam Rectal Exam: NORMAL INSPECTION - Extremities Exam Additional comments: muscle waist atrphy - Back Exam Back exam: NORMAL INSPECTION - Neurological Exam Neurological exam: Abnormal Gait Additional comments: bed ridden desnot comunicate - Psychiatric Exam Psychiatric exam: Flat Affect - Skin Skin Exam: Dry Results - Vital Signs Recent Vital Signs: Last Vital Signs Temp 98.0 F 12/19/16 07:15 Pulse 63 12/19/16 07:15 Resp 18 12/19/16 07:15 BP 109/53 L 12/19/16 07:15 Pulse Ox 95 12/19/16 07:15 - Labs Result Diagrams: 12/17/16 06:09 12/17/16 06:09 Assessment & Plan - Assessment and Plan (Free Text) Assessment: ac fever ac UTI AC DIRHEA DEHYDRATION HYPONATREAMIA DOWN SYNDROME Plan: PER ORDERS - Date & Time Date: 12/19/16 Time: 15:56
[2016-12-20] MEDS: Sodium Chloride 0.9% 1,000 ML IV SCH ×3 (00:30→20:19)
[2016-12-20] MEDS: Cefepime IV 1 gm in Dextrose 1 GM/50 ML BAG IVPB SCH (05:06)
[2016-12-20 06:57] LABS: HEMATOCRIT 31.6 % (35.0-51.0); MEAN CELL VOLUME 99.3 fL (80.0-94.0); MEAN CORPUSCULAR HEMOGLOBIN 34.1 pg (27.0-31.0); MEAN CORPUSCULAR HGB CONC 34.3 g/dL (33.0-37.0); MEAN PLATELET VOLUME 7.3 fL (7.2-11.7); RED CELL DISTRIBUTION WIDTH 13.4 % (11.5-14.5); WHITE BLOOD COUNT 2.5 K/uL (4.8-10.8)
[2016-12-20 07:05] LABS: CHLORIDE 99 mmol/L (98-107); POTASSIUM 3.1 mmol/L (3.6-5.2); SODIUM 129 mmol/L (132-148)
[2016-12-20 07:08] LABS: BLOOD UREA NITROGEN 8 mg/dL (9-20); CALCIUM 7.2 mg/dl (8.6-10.4); CARBON DIOXIDE 23 mmol/L (22-30); GFR AFRICAN-AMERICAN > 60; GLUCOSE,RANDOM 104 mg/dL (75-110)
--- NOTE | 2016-12-20 09:20 | PN ---
DATE: 12/20/2016 LOCATION: 653, bed A. This is a 61-year-old male seen and examined at rounds without significant clinical changes, but agai n with very poor oral intake. No reported active bleeding, and the patient is still complaining of g eneralized weakness and malaise. The entire chart is reviewed including, but not limited to, the most recent lab and radiology study r esults, current and the previous medication list, current and the previous medical events. LABORATORY DATA: Today's labs showed white blood cells low 2.5 with low hemoglobin 10.8. Hematocrit dropped to 31.6 with low sodium 129, low potassium 3.1 with low calcium 7.2, and low albumin 3.0. Stool for occult blood reported to be negative. Case discussed at length with admitting medical team, as well as staff on the floor. PHYSICAL EXAMINATION: GENERAL: A 61-year-old male. VITAL SIGNS: Afebrile with heart rate of 64, respiratory rate 20-22 with blood pressure of 114/58. HEENT: Showed pale, dry oral mucoid membrane. Nonicteric sclerae. LUNGS: Few scattered crepitations. Decreased air entry at bases. HEART: Positive S1 and S2. ABDOMEN: Soft. Bowel sounds are present with slight generalized tenderness. No guarding. NEUROLOGIC: No reported new neurologic examination. IMPRESSION: 1. Reported urinary tract infection. 2. Electrolyte imbalance. 3. Pneumonia. 4. Acute gastroenteritis, subsiding. 5. Malnutrition with hypoalbuminemia. 6. Reexacerbation of peptic ulcer disease. 7. Dysphagia by history, slightly improving. 8. Known history of hypothyroidism, hypertension. 9. Abnormal CAT scan of the abdomen with questionable partial bowel obstruction. SUGGESTION: 1. I agree with your plan. 2. Surgical reevaluation. 3. Central hyperalimentation. 4. Further recommendation to follow. Joon Caceres MD cc: 14 TT: 12/20/2016 09:20:02 Confirmation # [id number] Dictation # [id number] cyndi
--- NOTE | 2016-12-20 11:30 | CP.PCM.PN ---
Subjective - Date & Time of Evaluation Date of Evaluation: 12/20/16 Time of Evaluation: 11:28 - Subjective Subjective: pt weeke in bed deosnot comunicate Objective - Vital Signs/Intake and Output Vital Signs (last 24 hours): Temp Pulse Resp BP Pulse Ox 97.5 F L 62 20 107/47 L 98 12/20/16 07:10 12/20/16 07:10 12/20/16 07:10 12/20/16 07:10 12/20/16 07:10 Intake and Output: 12/20/16 12/20/16 06:59 18:59 Intake Total 1210 Balance 1210 - Medications Medications: Current Medications Calcium/Vitamin D (Oscal-D 250 Mg-125 Units Tab) 1 tab PO DAILY [facility] Heparin Sodium (Porcine) (Heparin) 5,000 units SC Q8 [facility] Last Admin: 12/20/16 05:08 Dose: 5,000 units Cefepime HCl (Maxipime Iv 1 Gm Premix) 1 gm in 50 mls @ 100 mls/hr IVPB Q12H [facility] Last Admin: 12/20/16 05:06 Dose: 100 mls/hr Sodium Chloride (Sodium Chloride 0.9%) 1,000 mls @ 60 mls/hr IV .[id number] [facility] Last Admin: 12/20/16 11:15 Dose: Not Given Pantoprazole Sodium (Protonix Inj) 40 mg IVP DAILY [facility] Last Admin: 12/20/16 11:13 Dose: 40 mg - Labs Labs: 12/20/16 06:50 12/20/16 06:50 - Constitutional Appears: Non-toxic - Head Exam Head Exam: NORMAL INSPECTION - Eye Exam Eye Exam: Normal appearance - ENT Exam ENT Exam: Mucous Membranes Dry - Neck Exam Neck Exam: Full ROM - Respiratory Exam Respiratory Exam: Clear to Ausculation Bilateral - Cardiovascular Exam Cardiovascular Exam: REGULAR RHYTHM, Murmur - GI/Abdominal Exam GI & Abdominal Exam: Normal Bowel Sounds - Rectal Exam Rectal Exam: NORMAL INSPECTION - Exam Exam: NORMAL INSPECTION - Extremities Exam Additional comments: muscle atrophy - Back Exam Back Exam: NORMAL INSPECTION - Skin Skin Exam: Dry Assessment and Plan - Assessment and Plan (Free Text) Assessment: ac urosepses generalised weekness DAWEN SYNDROME HYPONATREAMIA Plan: PER ORDERS
[2016-12-20] MEDS ORDERED: Calcium-Vit D 250 mg-125 Units Tab UD PO SCH (12:00)
--- NOTE | 2016-12-20 16:38 | CP.PCM.PN ---
Subjective - Date & Time of Evaluation Date of Evaluation: 12/20/16 Time of Evaluation: 08:00 - Subjective Subjective: + LBM x1 await dr angela cuevas Objective - Vital Signs/Intake and Output Vital Signs (last 24 hours): Temp Pulse Resp BP Pulse Ox 98.5 F 64 20 115/64 97 12/20/16 15:40 12/20/16 15:40 12/20/16 15:40 12/20/16 15:40 12/20/16 15:40 Intake and Output: 12/20/16 12/20/16 06:59 18:59 Intake Total 1210 630 Balance 1210 630 - Medications Medications: Current Medications Calcium/Vitamin D (Oscal-D 250 Mg-125 Units Tab) 1 tab PO DAILY [facility] Last Admin: 12/20/16 14:02 Dose: 1 tab Heparin Sodium (Porcine) (Heparin) 5,000 units SC Q8 [facility] Last Admin: 12/20/16 14:02 Dose: 5,000 units Cefepime HCl (Maxipime Iv 1 Gm Premix) 1 gm in 50 mls @ 100 mls/hr IVPB Q12H [facility] Last Admin: 12/20/16 05:06 Dose: 100 mls/hr Sodium Chloride (Sodium Chloride 0.9%) 1,000 mls @ 60 mls/hr IV .[id number] [facility] Last Admin: 12/20/16 11:15 Dose: Not Given Pantoprazole Sodium (Protonix Ec Tab) 40 mg PO DAILY [facility] - Labs Labs: 12/20/16 06:50 12/20/16 06:50 - Constitutional Appears: Non-toxic, Chronically Ill - Head Exam Head Exam: NORMOCEPHALIC - Eye Exam Eye Exam: absent: Scleral icterus - ENT Exam ENT Exam: Mucous Membranes Dry, Normal External Ear Exam - Neck Exam Neck Exam: absent: Lymphadenopathy - Respiratory Exam Respiratory Exam: Decreased Breath Sounds, Rhonchi - Cardiovascular Exam Cardiovascular Exam: REGULAR RHYTHM, +S1, +S2 - GI/Abdominal Exam GI & Abdominal Exam: Distended, Soft. absent: Tenderness - Rectal Exam Rectal Exam: Deferred - Exam Exam: NORMAL INSPECTION - Extremities Exam Extremities Exam: absent: Calf Tenderness, Pedal Edema Assessment and Plan (1) Febrile illness, acute Status: Acute (2) Gastroenteritis Status: Acute (3) Pneumonia Status: Suspected
[2016-12-20] MEDS: Ciprofloxacin 400mg/200ml D5W 400 MG/200 ML BAG IVPB SCH (18:12)
--- NOTE | 2016-12-20 21:48 | CON ---
DATE: 12/16/[address] Joon Caceres to Dr. Fina Matamoros. I was called for a GI consultation by the admitting MD. The patient is seen and fully examined on as requested by the admitting medical team as well as Dr. Fina Matamoros. The entire chart is reviewed. All the available lab and radiology study results, current and previou s medication lists, current and the previous medical events as well as allergic to medication lists w ere reviewed, including all of the available old and recent medical records. The patient was discuss ed with the staff at length on the floor. This is a 61-year-old male with multiple past medical history who was admitted to the hospital with r ecurrent ____ episodes of nonbloody vomiting with periods of diarrhea on and off, abdominal pain, low -grade fever with nonproductive cough on and off. No report of chest pain or palpitation. It has to be mentioned that all the information obtained from the medical record, medical staff, and nursing staff, as the patient is nonverbal, and some obtained from the family members. The patient i s bedridden. PAST MEDICAL HISTORY: Including, but not limited to: 1. Hypertension. 2. Hyperlipidemia. 3. Hypothyroidism. 4. Recurrent episodes of pneumonia. 5. Peptic ulcer disease. 6. Known history of anemia. Apparently, the patient had obstructive bowel before with recurrent episodes of fecal impaction as we ll as blood transfusion due to his anemia, with abdominal surgery due to his bowel obstruction. FAMILY HISTORY: Unclear. SOCIAL HISTORY: No known recent history of cigarette smoking or alcohol intake. LABORATORY DATA: Initial blood workup showed normal CBC with low chloride but normal SMA-7. Chest x-ray and CAT scan reports are seen with evidence of small abdominal wall hernia containing bow el with evidence of proximal bowel dilation with questionable obstruction with possible proctitis. PHYSICAL EXAMINATION: GENERAL: A 61-year-old male. VITAL SIGNS: Afebrile with pulse of 70, respiratory rate of 20-22 with blood pressure of 116/64. HEENT: Showed dry oral mucoid membrane, nonicteric sclerae. LYMPH NODES: No lymphadenitis or lymphadenopathy. LUNGS: A few scattered crepitations. Decreased air entry at bases. HEART: Positive S1 and S2. ABDOMEN: Soft with mild to moderate distention with a small anterior abdominal wall with anemia. No other mass or organomegaly. No rebound tenderness or guarding. EXTREMITIES: With mild edematous changes. No clubbing or cyanosis. NEUROLOGIC: No new reported neurological deficits, sensory or motor, than what is described in the h istory. IMPRESSION: 1. Anterior wall hernia formation. 2. Possible intermittent bowel obstruction. 3. Known history of hypertension and hypothyroidism. 4. Change of bowel movement habit to severe constipation which could be most likely secondary to adh esion and/or the patient's thyroid disorder with hypothyroidism. SUGGESTION: 1. Agree with your plan. 2. Rehydration. 3. Surgical consultation with possible fecal disimpaction as needed under anesthesia by the surgical team. 4. Cancer markers including CEA. 5. Peripheral hyperalimentation in the meantime. 6. Lactulose p.o. 7. Neurology reevaluation. 8. No need for aggressive GI workup in the meantime. 9. Further recommendation to follow. Thank you for letting me participate in your patient's case management. Joon Caceres MD cc: 14 TT: 12/20/2016 21:47:56 Confirmation # [id number] Dictation # [id number] tony
[2016-12-20 22:21] LABS: RBC URINE 17 /hpf (0-3); URINE BACTERIA FEW (<OCC); URINE BILIRUBIN NEGATIVE (NEGATIVE); URINE BLOOD 1+ (NEGATIVE); URINE COLOR Yellow (YELLOW); URINE GLUCOSE (UA) NORMAL (Normal); URINE KETONE NEGATIVE (NEGATIVE); URINE LEUKOCYTE ESTERASE NEG Leu/uL (Negative); URINE PROTEIN NEGATIVE (NEGATIVE); URINE UROBILINOGEN NORMAL mg/dL (0.2-1.0); WBC URINE 1 /hpf (0-5)
[2016-12-21] MEDS: Sodium Chloride 0.9% 1,000 ML IV SCH ×3 (04:00→18:00)
[2016-12-21] MEDS: Ciprofloxacin 400mg/200ml D5W 400 MG/200 ML BAG IVPB SCH (05:39)
[2016-12-21 06:58] LABS: CHLORIDE 102 mmol/L (98-107)
[2016-12-21 06:59] LABS: POTASSIUM 3.4 mmol/L (3.6-5.2); SODIUM 132 mmol/L (132-148)
[2016-12-21 07:01] LABS: GFR AFRICAN-AMERICAN > 60
[2016-12-21 07:02] LABS: BLOOD UREA NITROGEN 9 mg/dL (9-20); CALCIUM 7.9 mg/dl (8.6-10.4); CARBON DIOXIDE 23 mmol/L (22-30); GLUCOSE,RANDOM 116 mg/dL (75-110)
[2016-12-21 07:04] LABS: HEMATOCRIT 33.8 % (35.0-51.0); MEAN CELL VOLUME 100.7 fL (80.0-94.0); MEAN CORPUSCULAR HEMOGLOBIN 33.8 pg (27.0-31.0); MEAN CORPUSCULAR HGB CONC 33.6 g/dL (33.0-37.0); MEAN PLATELET VOLUME 7.7 fL (7.2-11.7); RED CELL DISTRIBUTION WIDTH 13.6 % (11.5-14.5); WHITE BLOOD COUNT 2.6 K/uL (4.8-10.8)
[2016-12-21] MEDS ORDERED: Pantoprazole 40 mg EC Tab PO SCH (10:00)
[2016-12-21] MEDS: Pantoprazole 40 mg Susp UD PO SCH (11:30)
--- NOTE | 2016-12-21 13:13 | CP.PCM.PN ---
Subjective - Date & Time of Evaluation Date of Evaluation: 12/21/16 Time of Evaluation: 08:00 - Subjective Subjective: now has c ciff iv rx adjusted dr miller on board Objective - Vital Signs/Intake and Output Vital Signs (last 24 hours): Temp Pulse Resp BP Pulse Ox 98.5 F 58 L 20 103/62 95 12/21/16 08:39 12/21/16 11:46 12/21/16 08:39 12/21/16 08:39 12/21/16 08:39 Intake and Output: 12/21/16 12/21/16 06:59 18:59 Intake Total 1350 Balance 1350 - Medications Medications: Current Medications Calcium Carbonate (Calcium Carbonate) 1,250 mg PO DAILY [facility] Heparin Sodium (Porcine) (Heparin) 5,000 units SC Q8 [facility] Last Admin: 12/21/16 05:38 Dose: 5,000 units Sodium Chloride (Sodium Chloride 0.9%) 1,000 mls @ 60 mls/hr IV .[id number] [facility] Last Admin: 12/21/16 04:00 Dose: Not Given Ciprofloxacin (Cipro 400mg/200ml Dsw) 400 mg in 200 mls @ 133 mls/hr IVPB Q12H [facility] Last Admin: 12/21/16 05:39 Dose: 133 mls/hr Pantoprazole Sodium (Protonix Susp) 40 mg PO DAILY [facility] Last Admin: 12/21/16 11:30 Dose: 40 mg - Labs Labs: 12/21/16 06:20 12/21/16 06:20 - Constitutional Appears: Non-toxic, Cachectic - Head Exam Head Exam: NORMOCEPHALIC - Eye Exam Eye Exam: PERRL. absent: Scleral icterus - ENT Exam ENT Exam: Mucous Membranes Dry, Normal External Ear Exam - Neck Exam Neck Exam: absent: Lymphadenopathy - Respiratory Exam Respiratory Exam: Decreased Breath Sounds - Cardiovascular Exam Cardiovascular Exam: REGULAR RHYTHM - GI/Abdominal Exam GI & Abdominal Exam: Distended, Soft Assessment and Plan (1) Febrile illness, acute Status: Acute (2) Gastroenteritis Status: Acute (3) Pneumonia Status: Suspected
[2016-12-21] MEDS: metroNIDAZOLE IV 500 mg/100 ml 500 MG/100 ML BAG IVPB SCH ×2 (13:56→22:52)
[2016-12-21] MEDS: Vancomycin 125 MG/5 ML SOLN (ORAL/RECTAL) PO SCH ×3 (13:57→22:55)
--- NOTE | 2016-12-21 18:13 | CP.PCM.PN ---
Subjective - Date & Time of Evaluation Date of Evaluation: 12/21/16 Time of Evaluation: 18:11 - Subjective Subjective: pt apeare more in his regular status trying to eate his sr by bd side afebrile had diarhea cdef positive Objective - Vital Signs/Intake and Output Vital Signs (last 24 hours): Temp Pulse Resp BP Pulse Ox 97.1 F L 68 20 103/68 95 12/21/16 15:45 12/21/16 15:45 12/21/16 15:45 12/21/16 15:45 12/21/16 15:45 Intake and Output: 12/21/16 12/21/16 06:59 18:59 Intake Total 1350 Balance 1350 - Medications Medications: Current Medications Calcium Carbonate (Calcium Carbonate) 1,250 mg PO DAILY [facility] Last Admin: 12/21/16 13:55 Dose: 1,250 mg Docusate Sodium (Colace) 100 mg PO BID [facility] Heparin Sodium (Porcine) (Heparin) 5,000 units SC Q8 [facility] Last Admin: 12/21/16 15:05 Dose: 5,000 units Sodium Chloride (Sodium Chloride 0.9%) 1,000 mls @ 60 mls/hr IV .[id number] [facility] Last Admin: 12/21/16 04:00 Dose: Not Given Metronidazole (Flagyl) 500 mg in 100 mls @ 100 mls/hr IVPB Q8 [facility] Last Admin: 12/21/16 13:56 Dose: 100 mls/hr Pantoprazole Sodium (Protonix Susp) 40 mg PO DAILY [facility] Last Admin: 12/21/16 11:30 Dose: 40 mg Vancomycin HCl (Vancocin (Oral Or Rectal Use)) 125 mg PO QID [facility] Last Admin: 12/21/16 13:57 Dose: 125 mg - Labs Labs: 12/21/16 06:20 12/21/16 06:20 - Constitutional Appears: Non-toxic - Head Exam Head Exam: NORMAL INSPECTION - Eye Exam Eye Exam: Normal appearance Pupil Exam: NORMAL ACCOMODATION - ENT Exam ENT Exam: Mucous Membranes Moist - Neck Exam Neck Exam: Full ROM - Respiratory Exam Respiratory Exam: Decreased Breath Sounds, Clear to Ausculation Bilateral - Cardiovascular Exam Cardiovascular Exam: REGULAR RHYTHM - GI/Abdominal Exam GI & Abdominal Exam: Tenderness - Extremities Exam Extremities Exam: Calf Tenderness - Back Exam Back Exam: NORMAL INSPECTION - Psychiatric Exam Psychiatric exam: Normal Affect - Skin Skin Exam: Pallor Assessment and Plan - Assessment and Plan (Free Text) Assessment: pnumonia ac diarhea cdef infection down syndrome Plan: as per orders
[2016-12-22] MEDS: metroNIDAZOLE IV 500 mg/100 ml 500 MG/100 ML BAG IVPB SCH ×3 (05:36→22:23)
--- NOTE | 2016-12-22 07:48 | CARD ---
APPROVED REPORT EKG Measurement Heart [id number] <Conclusion> Normal sinus rhythm T wave abnormality, consider anterior ischemia Abnormal ECG
[2016-12-22 09:26] LABS: RBC URINE 2 /hpf (0-3); URINE BILIRUBIN NEGATIVE (NEGATIVE); URINE BLOOD NEGATIVE (NEGATIVE); URINE CALCIUM OXALATE CRYSTALS OCC /hpf (<OCC); URINE COLOR Yellow (YELLOW); URINE GLUCOSE (UA) NORMAL (Normal); URINE KETONE NEGATIVE (NEGATIVE); URINE LEUKOCYTE ESTERASE NEG Leu/uL (Negative); URINE PROTEIN NEGATIVE (NEGATIVE); URINE UROBILINOGEN NORMAL mg/dL (0.2-1.0); WBC URINE 3 /hpf (0-5)
[2016-12-22] MEDS: Pantoprazole 40 mg Susp UD PO SCH (10:46)
[2016-12-22] MEDS: Vancomycin 125 MG/5 ML SOLN (ORAL/RECTAL) PO SCH ×4 (10:48→22:26)
--- NOTE | 2016-12-22 11:36 | CP.PCM.PN ---
Subjective - Date & Time of Evaluation Date of Evaluation: 12/22/16 Time of Evaluation: 11:33 - Subjective Subjective: diarhea Objective - Vital Signs/Intake and Output Vital Signs (last 24 hours): Temp Pulse Resp BP Pulse Ox 97.7 F 66 20 100/55 L 95 12/22/16 09:28 12/22/16 09:28 12/22/16 09:28 12/22/16 09:28 12/22/16 09:28 Intake and Output: 12/22/16 12/22/16 06:59 18:59 Intake Total 580 520 Output Total 200 Balance 380 520 - Medications Medications: Current Medications Calcium Carbonate (Calcium Carbonate) 1,250 mg PO DAILY [facility] Last Admin: 12/22/16 10:46 Dose: 1,250 mg Docusate Sodium (Colace) 100 mg PO BID [facility] Last Admin: 12/22/16 10:46 Dose: 100 mg Heparin Sodium (Porcine) (Heparin) 5,000 units SC Q8 [facility] Last Admin: 12/22/16 05:37 Dose: 5,000 units Sodium Chloride (Sodium Chloride 0.9%) 1,000 mls @ 60 mls/hr IV .[id number] [facility] Last Admin: 12/21/16 18:00 Dose: 60 mls/hr Metronidazole (Flagyl) 500 mg in 100 mls @ 100 mls/hr IVPB Q8 [facility] Last Admin: 12/22/16 05:36 Dose: 100 mls/hr Pantoprazole Sodium (Protonix Susp) 40 mg PO DAILY [facility] Last Admin: 12/22/16 10:46 Dose: 40 mg Vancomycin HCl (Vancocin (Oral Or Rectal Use)) 125 mg PO QID [facility] Last Admin: 12/22/16 10:48 Dose: 125 mg - Labs Labs: 12/21/16 06:20 12/21/16 06:20 - Constitutional Appears: No Acute Distress - Head Exam Head Exam: NORMAL INSPECTION - Eye Exam Eye Exam: Normal appearance - ENT Exam ENT Exam: Normal Exam - Neck Exam Neck Exam: Full ROM - Respiratory Exam Respiratory Exam: Decreased Breath Sounds - Cardiovascular Exam Cardiovascular Exam: REGULAR RHYTHM - GI/Abdominal Exam GI & Abdominal Exam: Normal Bowel Sounds - Exam External exam: NORMAL EXTERNAL EXAM - Extremities Exam Extremities Exam: Normal Inspection - Back Exam Back Exam: NORMAL INSPECTION - Psychiatric Exam Psychiatric exam: Normal Affect - Skin Skin Exam: Pallor - Additional Findings Additional findings: pt conined to bed Assessment and Plan - Assessment and Plan (Free Text) Assessment: E CLI UTI C DEF DIARHEA DOWN SYNDROME CONINED TO BED Plan: CONT PER ORDERS ORDERED AIR MATRESS
[2016-12-22] MEDS: Sodium Chloride 0.9% 1,000 ML IV SCH (12:55)
[2016-12-22] MEDS: Ciprofloxacin 400mg/200ml D5W 400 MG/200 ML BAG IVPB SCH ×2 (14:15→14:25)
--- NOTE | 2016-12-22 16:53 | RAD ---
PROCEDURE: Radiographs of the chest and abdomen (obstructive series) HISTORY: constipation, abdominal pain COMPARISON: Chest x-ray 12/16/2016 TECHNIQUE: AP radiograph of the chest, with upright and supine radiographs of the abdomen. FINDINGS: CHEST: Lungs: Interstitial lung markings - noted on the 12/16/2016 chest x-ray no interval change [place] in the left upper lobe is similar. Cardiovascular: Mild cardiomegaly similar Possible mild pulmonary vascular congestion. Possibly chronic Pleura: No pleural fluid. No pneumothorax. Other findings: None. ABDOMEN AND PELVIS: Bowel: Splenic flexure and ascending colon stool retention. Otherwise small bowel and large bowel loops are non moderately distended with gas. No bowel obstruction suspect Free air: None. Bones: Mild mid thoracic spondylosis. Bilateral hip osteoarthrosis Other findings: None. IMPRESSION: Splenic flexure and ascending colonic stool retention. No obstruction. No free air Prominent interstitial lung markings with coalescence in the left upper lobe -an appearance consistent with the prior chest x-ray 12/16/2016. Possible chronic pulmonary venous congestion
[2016-12-23] MEDS: Ciprofloxacin 400mg/200ml D5W 400 MG/200 ML BAG IVPB SCH ×2 (01:10→13:45)
[2016-12-23] MEDS: metroNIDAZOLE IV 500 mg/100 ml 500 MG/100 ML BAG IVPB SCH ×3 (05:20→21:25)
[2016-12-23] MEDS: Pantoprazole 40 mg Susp UD PO SCH (09:32)
[2016-12-23] MEDS: Vancomycin 125 MG/5 ML SOLN (ORAL/RECTAL) PO SCH ×4 (09:33→23:00)
--- NOTE | 2016-12-23 11:28 | PN ---
DATE: 12/23/2016 LOCATION: 671, bed A. This 61-year-old male seen and examined in rounds after I was called for GI reevaluation, was found t o have stool positive for C. diff for which Dr. Donahue had been seeing the patient for his pseudomemb ranous colitis. The patient is complaining of abdominal pain with abdominal distention. 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 The entire chart is reviewed, including but not limited to most recent lab and radiology study result s, current and the previous medication list, current and the previous medical events. Case discussed at length with the staff on the floor. PHYSICAL EXAMINATION: GENERAL: A 61-year-old male appeared to be awake, alert, oriented. VITAL SIGNS: Afebrile with pulse of 60, respiratory rate 20-22, blood pressure 110/56. HEENT: Showed pale, dry oral mucoid membrane. Nonicteric sclerae. LUNGS: Few scattered crepitations, decreased air entry at bases. HEART: Positive S1 and S2. ABDOMEN: Soft. Bowel sounds are present. No mass or organomegaly. No rebound tenderness or guardi ng. RECTAL: The patient refused. EXTREMITIES: Without significant edema, clubbing, or cyanosis. LABORATORY DATA: Most recent lab results showed subsequent drop of hemoglobin to 11.4 with hematocri t 33.8, but low white blood cells with stool for C. diff positive, and low calcium of 7.9 with normal blood glucose level. IMPRESSION: 1. Pseudomembranous colitis. 2. Anemia, most likely secondary to above. 3. Change of bowel movement habit of unclear etiology. 4. Rule out occult gastrointestinal malignancy. 5. Pneumonia, as well as pulmonary venous congestion. 6. Malnutrition with hypoalbuminemia. 7. Peptic ulcer disease. 8. Dysphagia by history, improving gradually. 9. Known history of hypertension and hypothyroidism. SUGGESTION: 1. Continue current management. 2. Full evaluation of the patient's dysphagia by upper endoscopy. 3. The patient may need colonoscopy when he is more stable clinically. Joon Caceres MD cc: 14 TT: 12/23/2016 11:27:51 Confirmation # [id number] Dictation # [id number]
--- NOTE | 2016-12-23 13:11 | CP.PCM.CON ---
History of Present Illness - History of Present Illness History of Present Illness: see dictated note no easy options Past Patient History - Infectious Disease Hx of Infectious Diseases: C.diff - Past Medical History & Family History Past Medical History?: Yes - Past Social History Smoking Status: Never Smoked - CARDIAC Hx Hypertension: Yes - PULMONARY Hx Pneumonia: Yes - NEUROLOGICAL Hx Neurological Disorder: Yes Other/Comment: hx down syndrome - HEENT Hx HEENT Problems: No - RENAL Hx Chronic Kidney Disease: No - ENDOCRINE/METABOLIC Hx Hypothyroidism: Yes - HEMATOLOGICAL/ONCOLOGICAL Hx Anemia: Yes - INTEGUMENTARY Hx Dermatological Problems: No - MUSCULOSKELETAL/RHEUMATOLOGICAL Hx Musculoskeletal Disorders: No - GASTROINTESTINAL Hx Gastrointestinal Disorders: Yes Other/Comment: hx obstinal obstruction had surgery - GENITOURINARY/GYNECOLOGICAL Other/Comment: Hx: pyelonephritis Incontinent of urine. 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 - ANESTHESIA Hx Anesthesia: Yes Hx Anesthesia Reactions: No Hx Malignant Hyperthermia: No Meds Allergies/Adverse Reactions: Allergies Allergy/AdvReac Type Severity Reaction Status Date / Time No Known Allergies Allergy Verified 12/16/15 19:16 - Medications Medications: Current Medications Calcium Carbonate (Calcium Carbonate) 1,250 mg PO DAILY [facility] Last Admin: 12/23/16 09:32 Dose: 1,250 mg Docusate Sodium (Colace) 100 mg PO BID [facility] Last Admin: 12/23/16 09:32 Dose: 100 mg Metronidazole (Flagyl) 500 mg in 100 mls @ 100 mls/hr IVPB Q8 [facility] Last Admin: 12/23/16 13:05 Dose: 100 mls/hr Ciprofloxacin (Cipro 400mg/200ml Dsw) 400 mg in 200 mls @ 133 mls/hr IVPB Q12H [facility] Last Admin: 12/23/16 01:10 Dose: 133 mls/hr Pantoprazole Sodium (Protonix Susp) 40 mg PO DAILY [facility] Last Admin: 12/23/16 09:32 Dose: 40 mg Vancomycin HCl (Vancocin (Oral Or Rectal Use)) 125 mg PO QID [facility] Last Admin: 12/23/16 09:33 Dose: 125 mg Results - Vital Signs Recent Vital Signs: Last Vital Signs Temp 97.7 F 12/23/16 08:35 Pulse 58 L 12/23/16 08:35 Resp 18 12/23/16 08:35 BP 102/48 L 12/23/16 08:35 Pulse Ox 94 L 12/23/16 08:35 - Labs Result Diagrams: 12/21/16 06:20 12/21/16 06:20 Labs: Laboratory Results - last 24 hr 12/22/16 12/23/16 16:40 07:07 POC Glucose (mg/dL) 97 C. difficile Ag & Toxin Negative
--- NOTE | 2016-12-23 15:45 | CP.PCM.PN ---
Subjective - Date & Time of Evaluation Date of Evaluation: 12/23/16 Time of Evaluation: 04:00 - Subjective Subjective: SEEN BY dR Deshpande [facility] IN PROGRESS Objective - Vital Signs/Intake and Output Vital Signs (last 24 hours): Temp Pulse Resp BP Pulse Ox 97.7 F 58 L 18 102/48 L 94 L 12/23/16 08:35 12/23/16 08:35 12/23/16 08:35 12/23/16 08:35 12/23/16 08:35 Intake and Output: 12/23/16 12/23/16 06:59 18:59 Intake Total 320 Balance 320 - Medications Medications: Current Medications Calcium Carbonate (Calcium Carbonate) 1,250 mg PO DAILY [facility] Last Admin: 12/23/16 09:32 Dose: 1,250 mg Docusate Sodium (Colace) 100 mg PO BID [facility] Last Admin: 12/23/16 09:32 Dose: 100 mg Metronidazole (Flagyl) 500 mg in 100 mls @ 100 mls/hr IVPB Q8 [facility] Last Admin: 12/23/16 13:05 Dose: 100 mls/hr Ciprofloxacin (Cipro 400mg/200ml Dsw) 400 mg in 200 mls @ 133 mls/hr IVPB Q12H [facility] Last Admin: 12/23/16 13:45 Dose: 133 mls/hr Morphine Sulfate (Morphine) 1 mg IVP Q6H PRN PRN Reason: Pain, moderate (4-7) Morphine Sulfate (Morphine Extended Release Tab) 15 mg PO Q12 [facility] Pantoprazole Sodium (Protonix Susp) 40 mg PO DAILY [facility] Last Admin: 12/23/16 09:32 Dose: 40 mg Vancomycin HCl (Vancocin (Oral Or Rectal Use)) 125 mg PO QID [facility] Last Admin: 12/23/16 13:11 Dose: 125 mg - Labs Labs: 12/21/16 06:20 12/21/16 06:20 Assessment and Plan (1) Febrile illness, acute Status: Acute (2) Gastroenteritis Status: Acute (3) Pneumonia Status: Suspected
[2016-12-23] MEDS ORDERED: Sodium Chloride 0.9% 1,000 ML IV SCH (16:45)
--- NOTE | 2016-12-23 18:54 | CP.PCM.PN ---
Subjective - Date & Time of Evaluation Date of Evaluation: 12/23/16 Time of Evaluation: 18:52 - Subjective Subjective: pt comfortable in bed doesnot comuinicate Objective - Vital Signs/Intake and Output Vital Signs (last 24 hours): Temp Pulse Resp BP Pulse Ox 97.6 F 56 L 18 119/50 L 97 12/23/16 15:53 12/23/16 15:53 12/23/16 15:53 12/23/16 15:53 12/23/16 15:53 Intake and Output: 12/23/16 12/23/16 06:59 18:59 Intake Total 320 Balance 320 - Medications Medications: Current Medications Albuterol/Ipratropium (Duoneb 3 Mg/0.5 Mg (3 Ml) Ud) 3 ml INH RQ6 [facility] Calcium Carbonate (Calcium Carbonate) 1,250 mg PO DAILY [facility] Last Admin: 12/23/16 09:32 Dose: 1,250 mg Docusate Sodium (Colace) 100 mg PO BID [facility] Last Admin: 12/23/16 17:58 Dose: 100 mg Home Med (Home Med) 1 unit PO [facility] Metronidazole (Flagyl) 500 mg in 100 mls @ 100 mls/hr IVPB Q8 [facility] Last Admin: 12/23/16 13:05 Dose: 100 mls/hr Ciprofloxacin (Cipro 400mg/200ml Dsw) 400 mg in 200 mls @ 133 mls/hr IVPB Q12H [facility] Last Admin: 12/23/16 13:45 Dose: 133 mls/hr Sodium Chloride (Sodium Chloride 0.9%) 1,000 mls @ 60 mls/hr IV .[id number] [facility] Stop: 12/25/16 02:04 Last Admin: 12/23/16 17:05 Dose: 60 mls/hr Morphine Sulfate (Morphine) 1 mg IVP Q6H PRN PRN Reason: Pain, moderate (4-7) Pantoprazole Sodium (Protonix Susp) 40 mg PO DAILY [facility] Last Admin: 12/23/16 09:32 Dose: 40 mg Vancomycin HCl (Vancocin (Oral Or Rectal Use)) 125 mg PO QID [facility] Last Admin: 12/23/16 17:58 Dose: 125 mg - Labs Labs: 12/21/16 06:20 12/21/16 06:20 - Constitutional Appears: Non-toxic - Head Exam Head Exam: NORMAL INSPECTION - Eye Exam Eye Exam: Normal appearance - ENT Exam ENT Exam: Normal Exam - Neck Exam Neck Exam: Full ROM - Respiratory Exam Respiratory Exam: Decreased Breath Sounds - Cardiovascular Exam Cardiovascular Exam: REGULAR RHYTHM - GI/Abdominal Exam GI & Abdominal Exam: Soft - Extremities Exam Extremities Exam: Normal Inspection - Back Exam Back Exam: NORMAL INSPECTION - Psychiatric Exam Psychiatric exam: Flat Affect - Skin Skin Exam: Pallor Assessment and Plan - Assessment and Plan (Free Text) Assessment: 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
[2016-12-23] MEDS: Sodium Chloride 0.9% 1,000 ML IV SCH (19:10)
[2016-12-23] MEDS: Albuterol-Ipratrop 3 mg / 0.5 (3 ml) UD INH SCH (20:35)
[2016-12-23] MEDS ORDERED: Morphine 15 mg SR Tab PO SCH (22:00)
[2016-12-24] MEDS: Ciprofloxacin 400mg/200ml D5W 400 MG/200 ML BAG IVPB SCH ×2 (01:15→14:56)
[2016-12-24] MEDS: Albuterol-Ipratrop 3 mg / 0.5 (3 ml) UD INH SCH ×4 (01:23→19:19)
[2016-12-24] MEDS: metroNIDAZOLE IV 500 mg/100 ml 500 MG/100 ML BAG IVPB SCH ×3 (05:17→22:09)
[2016-12-24 09:05] LABS: CHLORIDE 97 mmol/L (98-107)
[2016-12-24 09:06] LABS: POTASSIUM 3.1 mmol/L (3.6-5.2); SODIUM 129 mmol/L (132-148)
[2016-12-24 09:08] LABS: CARBON DIOXIDE 27 mmol/L (22-30); GFR AFRICAN-AMERICAN > 60
[2016-12-24 09:09] LABS: BLOOD UREA NITROGEN 7 mg/dL (9-20); CALCIUM 7.1 mg/dl (8.6-10.4); GLUCOSE,RANDOM 84 mg/dL (75-110)
[2016-12-24] MEDS: Vancomycin 125 MG/5 ML SOLN (ORAL/RECTAL) PO SCH ×5 (11:54→22:10)
[2016-12-24] MEDS: Pantoprazole 40 mg Susp UD PO SCH (12:46)
[2016-12-24] MEDS ORDERED: Potassium Chloride 20 mEq/15 ml LIQ UD PO ONE ×2 (13:15→22:00)
[2016-12-24] MEDS: Sodium Chloride 0.9% 1,000 ML IV SCH (13:35)
--- NOTE | 2016-12-24 15:48 | CP.PCM.PN ---
Subjective - Date & Time of Evaluation Date of Evaluation: 12/24/16 Time of Evaluation: 15:44 - Subjective Subjective: Surgery: Dr. Baires Patient remains clinically same. Patient appears in no distress. Per nursing no acute events overnight. Objective - Vital Signs/Intake and Output Vital Signs (last 24 hours): Temp Pulse Resp BP Pulse Ox 97.9 F 70 18 103/52 L 96 12/24/16 09:01 12/24/16 09:01 12/24/16 09:01 12/24/16 09:01 12/24/16 09:01 Intake and Output: 12/24/16 12/24/16 06:59 18:59 Intake Total 1170 480 Balance 1170 480 - Medications Medications: Current Medications Albuterol/Ipratropium (Duoneb 3 Mg/0.5 Mg (3 Ml) Ud) 3 ml INH RQ6 [facility] Last Admin: 12/24/16 13:35 Dose: 3 ml Calcium Carbonate (Calcium Carbonate) 1,250 mg PO DAILY [facility] Last Admin: 12/24/16 12:46 Dose: 1,250 mg Home Med (Home Med) 1 unit PO HS [facility] Metronidazole (Flagyl) 500 mg in 100 mls @ 100 mls/hr IVPB Q8 [facility] Last Admin: 12/24/16 13:30 Dose: 100 mls/hr Ciprofloxacin (Cipro 400mg/200ml Dsw) 400 mg in 200 mls @ 133 mls/hr IVPB Q12H [facility] Last Admin: 12/24/16 14:56 Dose: 133 mls/hr Sodium Chloride (Sodium Chloride 0.9%) 1,000 mls @ 60 mls/hr IV .[id number] [facility] Last Admin: 12/24/16 13:35 Dose: 60 mls/hr Morphine Sulfate (Morphine) 1 mg IVP Q6H PRN PRN Reason: Pain, moderate (4-7) Pantoprazole Sodium (Protonix Susp) 40 mg PO DAILY [facility] Last Admin: 12/24/16 12:46 Dose: 40 mg Potassium Chloride (Potassium Chloride Oral Soln) 20 meq PO ONCE ONE Stop: 12/24/16 22:01 Potassium Chloride (Potassium Chloride Oral Soln) 20 meq PO DAILY [facility] Stop: 12/27/16 10:01 Sennosides (Senokot Tab) 8.6 mg PO DAILY [facility] Vancomycin HCl (Vancocin (Oral Or Rectal Use)) 125 mg PO QID [facility] Last Admin: 12/24/16 13:34 Dose: Not Given - Labs Labs: 12/21/16 06:20 12/24/16 08:41 - Constitutional Appears: Non-toxic, No Acute Distress, Chronically Ill - Head Exam Head Exam: ATRAUMATIC, NORMOCEPHALIC - ENT Exam ENT Exam: Mucous Membranes Moist - Respiratory Exam Respiratory Exam: NORMAL BREATHING PATTERN. absent: Respiratory Distress - GI/Abdominal Exam GI & Abdominal Exam: Soft. absent: Distended, Guarding, Rigid, Tenderness Assessment and Plan - Assessment and Plan (Free Text) Assessment: 61 y/o male w/ poor po intake and poor nutritional status Plan: -will attempt conservative treatment at this time -recommend prokinetic agents -po lactulose to stimulate bowel function -diet per nutrition or GI recs -patient is poor surgical candidate -will follow -d/w Dr. Dequan Hinson PGY1
[2016-12-24] MEDS: Potassium Chl 40 mEq in D5-1/2 1,000 ML IV SCH (17:25)
--- NOTE | 2016-12-24 18:25 | CP.PCM.PN ---
Subjective - Date & Time of Evaluation Date of Evaluation: 12/24/16 Time of Evaluation: 18:21 - Subjective Subjective: ptin bed no distress vss lung cleare Objective - Vital Signs/Intake and Output Vital Signs (last 24 hours): Temp Pulse Resp BP Pulse Ox 97.9 F 78 18 140/66 96 12/24/16 16:00 12/24/16 16:00 12/24/16 16:00 12/24/16 16:00 12/24/16 16:00 Intake and Output: 12/24/16 12/24/16 06:59 18:59 Intake Total 1170 480 Balance 1170 480 - Medications Medications: Current Medications Albuterol/Ipratropium (Duoneb 3 Mg/0.5 Mg (3 Ml) Ud) 3 ml INH RQ6 [facility] Last Admin: 12/24/16 13:35 Dose: 3 ml Calcium Carbonate (Calcium Carbonate) 1,250 mg PO DAILY [facility] Last Admin: 12/24/16 12:46 Dose: 1,250 mg Home Med (Patient's Own Medication) 1 tab PO [facility] Metronidazole (Flagyl) 500 mg in 100 mls @ 100 mls/hr IVPB Q8 [facility] Last Admin: 12/24/16 13:30 Dose: 100 mls/hr Ciprofloxacin (Cipro 400mg/200ml Dsw) 400 mg in 200 mls @ 133 mls/hr IVPB Q12H [facility] Last Admin: 12/24/16 14:56 Dose: 133 mls/hr Potassium Chloride/Dextrose/Sod Cl (Potassium Chl 40 Meq In D5-1/2ns) 1,000 mls @ 75 mls/hr IV .[id number] [facility] Last Admin: 12/24/16 17:25 Dose: 75 mls/hr Lactulose (Enulose) 20 gm PO [facility] Metoclopramide HCl (Reglan) 10 mg IVP Q6 [facility] Stop: 12/25/16 12:01 Last Admin: 12/24/16 17:26 Dose: 10 mg Morphine Sulfate (Morphine) 1 mg IVP Q6H PRN PRN Reason: Pain, moderate (4-7) Pantoprazole Sodium (Protonix Susp) 40 mg PO DAILY [facility] Last Admin: 12/24/16 12:46 Dose: 40 mg Potassium Chloride (Potassium Chloride Oral Soln) 20 meq PO ONCE ONE Stop: 12/24/16 22:01 Potassium Chloride (Potassium Chloride Oral Soln) 20 meq PO DAILY [facility] Stop: 12/27/16 10:01 Sennosides (Senokot Tab) 8.6 mg PO DAILY [facility] Vancomycin HCl (Vancocin (Oral Or Rectal Use)) 125 mg PO QID [facility] Last Admin: 12/24/16 17:26 Dose: 125 mg - Labs Labs: 12/21/16 06:20 12/24/16 08:41 - Constitutional Appears: Non-toxic - Head Exam Head Exam: NORMAL INSPECTION - Eye Exam Eye Exam: Normal appearance Pupil Exam: NORMAL ACCOMODATION - ENT Exam ENT Exam: Mucous Membranes Moist - Respiratory Exam Respiratory Exam: Clear to Ausculation Bilateral - Cardiovascular Exam Cardiovascular Exam: REGULAR RHYTHM - GI/Abdominal Exam GI & Abdominal Exam: Hyperactive Bowel Sounds - Rectal Exam Rectal Exam: NORMAL INSPECTION - Back Exam Back Exam: NORMAL INSPECTION - Skin Skin Exam: Normal Color Assessment and Plan - Assessment and Plan (Free Text) Assessment: pnumonia c def dowen syndromebter eating impaction Plan: as per orders
[2016-12-24] MEDS: MELATONIN 10 MG PO SCH (22:10)
[2016-12-25] MEDS: Ciprofloxacin 400mg/200ml D5W 400 MG/200 ML BAG IVPB SCH ×2 (01:03→14:52)
[2016-12-25] MEDS: Albuterol-Ipratrop 3 mg / 0.5 (3 ml) UD INH SCH ×4 (01:07→21:40)
[2016-12-25] MEDS: metroNIDAZOLE IV 500 mg/100 ml 500 MG/100 ML BAG IVPB SCH ×3 (05:03→22:46)
[2016-12-25] MEDS ORDERED: Sodium Chloride 0.9% 1,000 ML IV ONE (05:10)
[2016-12-25 08:22] LABS: BASO % 0.5 % (0.0-2.0); EOS % 0.4 % (0.0-4.0); HEMATOCRIT 34.2 % (35.0-51.0); LYMPH # 1.4 K/uL (1.0-4.3); LYMPH % 18.2 % (20.0-40.0); MEAN CELL VOLUME 100.2 fL (80.0-94.0); MEAN CORPUSCULAR HEMOGLOBIN 33.5 pg (27.0-31.0); MEAN CORPUSCULAR HGB CONC 33.4 g/dL (33.0-37.0); MEAN PLATELET VOLUME 7.4 fL (7.2-11.7); MONO # 0.4 K/uL (0.0-0.8); MONO % 5.7 % (0.0-10.0); RED CELL DISTRIBUTION WIDTH 13.3 % (11.5-14.5)
[2016-12-25 08:33] LABS: CHLORIDE 99 mmol/L (98-107); SODIUM 131 mmol/L (132-148)
[2016-12-25 08:36] LABS: GFR AFRICAN-AMERICAN > 60
[2016-12-25 08:37] LABS: BLOOD UREA NITROGEN 7 mg/dL (9-20); CARBON DIOXIDE 26 mmol/L (22-30); GLUCOSE,RANDOM 105 mg/dL (75-110)
[2016-12-25 08:38] LABS: WHITE BLOOD COUNT 7.8 K/uL (4.8-10.8)
--- NOTE | 2016-12-25 09:38 | CP.PCM.PN ---
Subjective - Date & Time of Evaluation Date of Evaluation: 12/25/16 Time of Evaluation: 09:35 - Subjective Subjective: surgery: Dr. Baires Patient clinically remains the same. Per nursing patient had good appetite last night. No BM yesterday. Objective - Vital Signs/Intake and Output Vital Signs (last 24 hours): Temp Pulse Resp BP Pulse Ox 96 F L 58 L 20 98/65 L 98 12/25/16 07:00 12/25/16 07:00 12/25/16 07:00 12/25/16 07:00 12/25/16 07:00 Intake and Output: 12/25/16 12/25/16 06:59 18:59 Intake Total 650 Balance 650 - Medications Medications: Current Medications Albuterol/Ipratropium (Duoneb 3 Mg/0.5 Mg (3 Ml) Ud) 3 ml INH RQ6 [facility] Last Admin: 12/25/16 08:03 Dose: 3 ml Calcium Carbonate (Calcium Carbonate) 1,250 mg PO DAILY [facility] Last Admin: 12/24/16 12:46 Dose: 1,250 mg Home Med (Patient's Own Medication) 1 tab PO HS [facility] Last Admin: 12/24/16 22:10 Dose: 1 tab Metronidazole (Flagyl) 500 mg in 100 mls @ 100 mls/hr IVPB Q8 [facility] Last Admin: 12/25/16 05:03 Dose: 100 mls/hr Ciprofloxacin (Cipro 400mg/200ml Dsw) 400 mg in 200 mls @ 133 mls/hr IVPB Q12H [facility] Last Admin: 12/25/16 01:03 Dose: 133 mls/hr Potassium Chloride/Dextrose/Sod Cl (Potassium Chl 40 Meq In D5-1/2ns) 1,000 mls @ 75 mls/hr IV .[id number] [facility] Last Admin: 12/24/16 17:25 Dose: 75 mls/hr Lactulose (Enulose) 20 gm PO BID [facility] Metoclopramide HCl (Reglan) 10 mg IVP Q6 [facility] Stop: 12/25/16 12:01 Last Admin: 12/25/16 06:16 Dose: 10 mg Morphine Sulfate (Morphine) 1 mg IVP Q6H PRN PRN Reason: Pain, moderate (4-7) Pantoprazole Sodium (Protonix Susp) 40 mg PO DAILY [facility] Last Admin: 12/24/16 12:46 Dose: 40 mg Potassium Chloride (Potassium Chloride Oral Soln) 20 meq PO DAILY [facility] Stop: 12/27/16 10:01 Sennosides (Senokot Tab) 8.6 mg PO DAILY [facility] Vancomycin HCl (Vancocin (Oral Or Rectal Use)) 125 mg PO QID [facility] Last Admin: 12/24/16 22:10 Dose: 125 mg - Labs Labs: 12/25/16 08:13 12/25/16 08:13 - Constitutional Appears: Non-toxic, No Acute Distress - Head Exam Head Exam: ATRAUMATIC, NORMOCEPHALIC - ENT Exam ENT Exam: Mucous Membranes Moist - GI/Abdominal Exam GI & Abdominal Exam: Soft. absent: Distended, Guarding, Tenderness Assessment and Plan - Assessment and Plan (Free Text) Assessment: 61 y/o male w/ poor po intake and possible impaction-improving Plan: -will increase enulose to BID -cont diet -if po intake remains no plan for surgical intervention -d/w Dr. Dequan Hinson PGY1
[2016-12-25] MEDS ORDERED: Potassium Chloride 20 mEq/15 ml LIQ UD PO SCH (10:00)
[2016-12-25] MEDS: Pantoprazole 40 mg Susp UD PO SCH (10:30)
[2016-12-25] MEDS: Vancomycin 125 MG/5 ML SOLN (ORAL/RECTAL) PO SCH ×4 (10:30→22:48)
--- NOTE | 2016-12-25 11:03 | PN ---
DATE: 12/25/2016 LOCATION: 671, bed A. This is a 61-year-old male seen and examined at rounds today without significant reported clinical ch anges, but subsequent drop of his blood pressure early this morning. The entire chart is reviewed in cluding, but not limited to the most recent lab and radiology study results, current and the previous medication lists, current and the previous medical events as well as allergy to medication list. It has to be reported that the patient had no evidence of active bleeding and no reported nausea or vom iting this morning with adequate appetite and adequate oral intake. No reported bowel movement yesterday and no mucoid bowel movement reported. The entire chart is reviewed including, but not limited to the most recent lab and radiology study re sults, current and the previous medication lists, current and the previous medical events and the pat ient still has low hemoglobin of 11.4, hematocrit 34.2 with normal white blood cells and normal plate let count with sodium still low 131 with low BUN and creatinine as well as low calcium. PHYSICAL EXAMINATION: GENERAL: A 61-year-old male. VITAL SIGNS: Afebrile with pulse of 62, respiratory rate 20-22, and now blood pressure of 100/62. HEENT: Showed pale, dry oral mucoid membrane. Nonicteric sclerae. LUNGS: Few scattered crepitation, decreased air entry at bases. HEART: Positive S1 and S2. ABDOMEN: Soft. Bowel sounds are present with mild generalized tenderness. No mass or organomegaly. No rebound tenderness or guarding. EXTREMITIES: Without significant reported clubbing, cyanosis or edema. NEUROLOGIC: No new reported neurological deficits, sensory or motor. IMPRESSION: 1. Recent history of pseudomembranous colitis, improving clinically. 2. Reexacerbation of peptic ulcer disease. 3. Anemia, most likely secondary to above. 4. Pneumonia by recent history with mild pulmonary venous congestion, improving. 5. Malnutrition with hypoalbuminemia, improving gradually. 6. Known history of hypothyroidism with hypertension. SUGGESTION: 1. Continue current management. 2. Repeat stool for C. diff. 3. No need for aggressive GI workup in the meantime. Joon Caceres MD cc: 14 TT: 12/25/2016 11:02:52 Confirmation # [id number] Dictation # [id number]
--- NOTE | 2016-12-25 11:09 | CP.PCM.PN ---
Subjective - Date & Time of Evaluation Date of Evaluation: 12/25/16 Time of Evaluation: 11:06 - Subjective Subjective: pt comfortable eating beter Objective - Vital Signs/Intake and Output Vital Signs (last 24 hours): Temp Pulse Resp BP Pulse Ox 96 F L 58 L 20 98/65 L 98 12/25/16 07:00 12/25/16 07:00 12/25/16 07:00 12/25/16 07:00 12/25/16 07:00 Intake and Output: 12/25/16 12/25/16 06:59 18:59 Intake Total 650 Balance 650 - Medications Medications: Current Medications Albuterol/Ipratropium (Duoneb 3 Mg/0.5 Mg (3 Ml) Ud) 3 ml INH RQ6 [facility] Last Admin: 12/25/16 08:03 Dose: 3 ml Calcium Carbonate (Calcium Carbonate) 1,250 mg PO DAILY [facility] Last Admin: 12/25/16 10:28 Dose: 1,250 mg Home Med (Patient's Own Medication) 1 tab PO HS [facility] Last Admin: 12/24/16 22:10 Dose: 1 tab Metronidazole (Flagyl) 500 mg in 100 mls @ 100 mls/hr IVPB Q8 [facility] Last Admin: 12/25/16 05:03 Dose: 100 mls/hr Ciprofloxacin (Cipro 400mg/200ml Dsw) 400 mg in 200 mls @ 133 mls/hr IVPB Q12H [facility] Last Admin: 12/25/16 01:03 Dose: 133 mls/hr Potassium Chloride/Dextrose/Sod Cl (Potassium Chl 40 Meq In D5-1/2ns) 1,000 mls @ 75 mls/hr IV .[id number] [facility] Last Admin: 12/24/16 17:25 Dose: 75 mls/hr Lactulose (Enulose) 20 gm PO BID [facility] Last Admin: 12/25/16 10:36 Dose: 20 gm Metoclopramide HCl (Reglan) 10 mg IVP Q6 [facility] Stop: 12/25/16 12:01 Last Admin: 12/25/16 06:16 Dose: 10 mg Morphine Sulfate (Morphine) 1 mg IVP Q6H PRN PRN Reason: Pain, moderate (4-7) Pantoprazole Sodium (Protonix Susp) 40 mg PO DAILY [facility] Last Admin: 12/25/16 10:30 Dose: 40 mg Sennosides (Senokot Tab) 8.6 mg PO DAILY [facility] Last Admin: 12/25/16 10:30 Dose: 8.6 mg Vancomycin HCl (Vancocin (Oral Or Rectal Use)) 125 mg PO QID [facility] Last Admin: 12/25/16 10:30 Dose: 125 mg - Labs Labs: 12/25/16 08:13 12/25/16 08:13 - Constitutional Appears: Non-toxic - Head Exam Head Exam: NORMAL INSPECTION - Eye Exam Eye Exam: Normal appearance - ENT Exam ENT Exam: Mucous Membranes Moist - Neck Exam Neck Exam: Full ROM - Respiratory Exam Respiratory Exam: NORMAL BREATHING PATTERN - Cardiovascular Exam Cardiovascular Exam: REGULAR RHYTHM - GI/Abdominal Exam GI & Abdominal Exam: Soft - Rectal Exam Rectal Exam: NORMAL INSPECTION - Extremities Exam Extremities Exam: Normal Inspection - Back Exam Back Exam: NORMAL INSPECTION - Psychiatric Exam Psychiatric exam: Normal Affect - Skin Skin Exam: Normal Color Assessment and Plan - Assessment and Plan (Free Text) Assessment: fever improved pnumonia 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
[2016-12-25 12:29] LABS: RBC URINE < 1 /hpf (0-3); URINE BILIRUBIN NEGATIVE (NEGATIVE); URINE BLOOD NEGATIVE (NEGATIVE); URINE COLOR Straw (YELLOW); URINE GLUCOSE (UA) NORMAL (Normal); URINE KETONE NEGATIVE (NEGATIVE); URINE LEUKOCYTE ESTERASE NEG Leu/uL (Negative); URINE PROTEIN NEGATIVE (NEGATIVE); URINE UROBILINOGEN NORMAL mg/dL (0.2-1.0); WBC URINE 1 /hpf (0-5)
[2016-12-25] MEDS: Potassium Chl 40 mEq in D5-1/2 1,000 ML IV SCH (13:45)
[2016-12-25] MEDS: MELATONIN 10 MG PO SCH (22:46)
[2016-12-26] MEDS: Albuterol-Ipratrop 3 mg / 0.5 (3 ml) UD INH SCH ×4 (01:56→19:21)
[2016-12-26] MEDS: Ciprofloxacin 400mg/200ml D5W 400 MG/200 ML BAG IVPB SCH ×2 (02:44→14:51)
[2016-12-26] MEDS: metroNIDAZOLE IV 500 mg/100 ml 500 MG/100 ML BAG IVPB SCH ×3 (05:11→21:58)
[2016-12-26 09:11] LABS: HEMATOCRIT 35.9 % (35.0-51.0); MEAN CELL VOLUME 101.5 fL (80.0-94.0); MEAN CORPUSCULAR HEMOGLOBIN 33.6 pg (27.0-31.0); MEAN CORPUSCULAR HGB CONC 33.1 g/dL (33.0-37.0); MEAN PLATELET VOLUME 7.5 fL (7.2-11.7); RED CELL DISTRIBUTION WIDTH 13.7 % (11.5-14.5); WHITE BLOOD COUNT 5.7 K/uL (4.8-10.8)
[2016-12-26 09:13] LABS: CHLORIDE 97 mmol/L (98-107)
[2016-12-26 09:14] LABS: POTASSIUM 4.6 mmol/L (3.6-5.2); SODIUM 128 mmol/L (132-148)
[2016-12-26 09:16] LABS: GFR AFRICAN-AMERICAN > 60
[2016-12-26 09:17] LABS: BLOOD UREA NITROGEN 4 mg/dL (9-20); CALCIUM 7.3 mg/dl (8.6-10.4); CARBON DIOXIDE 26 mmol/L (22-30); GLUCOSE,RANDOM 98 mg/dL (75-110)
--- NOTE | 2016-12-26 10:23 | CP.PCM.PN ---
Subjective - Date & Time of Evaluation Date of Evaluation: 12/26/16 Time of Evaluation: 10:21 - Subjective Subjective: PT SMILING TODAY DOESNOT COMUNICATE Objective - Vital Signs/Intake and Output Vital Signs (last 24 hours): Temp Pulse Resp BP Pulse Ox 96.9 F L 84 20 90/48 L 98 12/26/16 08:15 12/26/16 08:15 12/26/16 08:15 12/26/16 08:15 12/26/16 08:15 - Medications Medications: Current Medications Albuterol/Ipratropium (Duoneb 3 Mg/0.5 Mg (3 Ml) Ud) 3 ml INH RQ6 [facility] Last Admin: 12/26/16 08:31 Dose: 3 ml Calcium Carbonate (Calcium Carbonate) 1,250 mg PO DAILY [facility] Last Admin: 12/25/16 10:28 Dose: 1,250 mg Home Med (Patient's Own Medication) 1 tab PO HS [facility] Last Admin: 12/25/16 22:46 Dose: 1 tab Metronidazole (Flagyl) 500 mg in 100 mls @ 100 mls/hr IVPB Q8 [facility] Last Admin: 12/26/16 05:11 Dose: 100 mls/hr Ciprofloxacin (Cipro 400mg/200ml Dsw) 400 mg in 200 mls @ 133 mls/hr IVPB Q12H [facility] Last Admin: 12/26/16 02:44 Dose: 133 mls/hr Potassium Chloride/Dextrose/Sod Cl (Potassium Chl 40 Meq In D5-1/2ns) 1,000 mls @ 75 mls/hr IV .[id number] [facility] Last Admin: 12/25/16 13:45 Dose: 75 mls/hr Lactulose (Enulose) 20 gm PO BID [facility] Last Admin: 12/25/16 17:35 Dose: 20 gm Morphine Sulfate (Morphine) 1 mg IVP Q6H PRN PRN Reason: Pain, moderate (4-7) Pantoprazole Sodium (Protonix Susp) 40 mg PO DAILY [facility] Last Admin: 12/25/16 10:30 Dose: 40 mg Sennosides (Senokot Tab) 8.6 mg PO DAILY [facility] Last Admin: 12/25/16 10:30 Dose: 8.6 mg Vancomycin HCl (Vancocin (Oral Or Rectal Use)) 125 mg PO QID [facility] Last Admin: 12/25/16 22:48 Dose: 125 mg - Labs Labs: 12/26/16 08:47 12/26/16 08:30 - Constitutional Appears: Non-toxic - Head Exam Head Exam: NORMAL INSPECTION - Eye Exam Eye Exam: Normal appearance Pupil Exam: NORMAL ACCOMODATION - ENT Exam ENT Exam: Normal Exam - Neck Exam Neck Exam: Full ROM - Respiratory Exam Respiratory Exam: Clear to Ausculation Bilateral, NORMAL BREATHING PATTERN - Cardiovascular Exam Cardiovascular Exam: REGULAR RHYTHM - GI/Abdominal Exam GI & Abdominal Exam: Normal Bowel Sounds - Exam Exam: NORMAL INSPECTION - Back Exam Back Exam: NORMAL INSPECTION - Psychiatric Exam Psychiatric exam: Normal Affect - Skin Skin Exam: Normal Color Assessment and Plan - Assessment and Plan (Free Text) Assessment: PNUMONIA UTI GENERALISED WEEKNESS C DEF DIARHEA DOWEN SYNDROME CONT PER ORDERS
[2016-12-26] MEDS: Pantoprazole 40 mg Susp UD PO SCH (10:56)
[2016-12-26] MEDS: Vancomycin 125 MG/5 ML SOLN (ORAL/RECTAL) PO SCH ×4 (10:56→22:13)
[2016-12-26] MEDS: Potassium Chl 40 mEq in D5-1/2 1,000 ML IV SCH (10:57)
[2016-12-26] MEDS: MELATONIN 10 MG PO SCH (22:12)
[2016-12-27] MEDS: Ciprofloxacin 400mg/200ml D5W 400 MG/200 ML BAG IVPB SCH (01:00)
[2016-12-27] MEDS: Albuterol-Ipratrop 3 mg / 0.5 (3 ml) UD INH SCH ×4 (01:38→19:14)
[2016-12-27] MEDS: metroNIDAZOLE IV 500 mg/100 ml 500 MG/100 ML BAG IVPB SCH (05:17)
--- NOTE | 2016-12-27 08:49 | PN ---
DATE: 12/27/2016 LOCATION: 671, bed A. This is a 61-year-old male, seen early in rounds today without significant clinical changes, however, it was despite that the patient has periods of hypotension. The entire chart is reviewed including, but not limited to, the most recent lab and radiology study r esults, current and previous medication lists, current and previous medical events as well as all the available current and previous medical records were reviewed. No reported diarrhea or new complaint of abdominal pain. Most recent lab results showed low hemoglobin of 11.9 with normal platelet count, but low sodium 128 with low BUN 4, low creatinine 0.5 but with normal blood glucose level 105 with low calcium of 7.3. Repeat C. diff antigen was positive. Case discussed at length with the staff on the floor as well as the patient's family. PHYSICAL EXAMINATION: GENERAL: A 61-year-old male. VITAL SIGNS: Afebrile with pulse of 62, respiratory rate 20-22 with blood pressure 94/54. HEENT: Showed pale, dry oral mucoid membrane. Nonicteric sclerae. LUNGS: Few scattered crepitation, decreased air entry at bases. HEART: Positive S1 and S2. ABDOMEN: Soft. Bowel sounds are present with slight distention. No mass or organomegaly. No rebou nd tenderness or guarding. RECTAL: The patient refused. EXTREMITIES: Without significant edema, clubbing or cyanosis. NEUROLOGIC: No reported new neurological deficits, sensory or motor. IMPRESSION: 1. Reported positive stool for Clostridium difficile with diarrhea indicative of pseudomembranous co litis, improving gradually and clinically. 2. Reported history of Down syndrome. 3. Pneumonia with mild congestive heart failure as per radiology study results. 4. Anemia, most likely secondary to above. 5. Electrolyte imbalance, gradually improving. 6. Reported urinary tract infection, clinically improving. 7. Reexacerbation of peptic ulcer disease. 8. Hypoalbuminemia with malnutrition, improving gradually. 9. Known history of hypotension as well as history of hypertension with recent reports of hypotensio n due to his infectious process most likely and diarrhea. SUGGESTION: 1. Continue current management. 2. Repeat stool for Clostridium difficile antigen and toxin. If it is positive for antigen, we may have to add rifampin 1 tablet p.o. daily for the following 2 weeks. 3. Will follow up with you p.r.n. Joon Caceres MD cc: 14 TT: 12/27/2016 08:47:45 Confirmation # [id number] Dictation # [id number] en
[2016-12-27] MEDS: Pantoprazole 40 mg Susp UD PO SCH (09:35)
[2016-12-27] MEDS: Vancomycin 125 MG/5 ML SOLN (ORAL/RECTAL) PO SCH ×4 (09:39→22:35)
[2016-12-27] MEDS: Potassium Chl 40 mEq in D5-1/2 1,000 ML IV SCH (11:07)
[2016-12-27] MEDS: MELATONIN 10 MG PO SCH (22:35)
[2016-12-28] MEDS: Albuterol-Ipratrop 3 mg / 0.5 (3 ml) UD INH SCH ×3 (01:20→14:12)
[2016-12-28 08:44] VITALS: BP 101/57; PULSE 65; RESP 18; TEMP 97.5; O2SAT 95
[2016-12-28] MEDS: Pantoprazole 40 mg Susp UD PO SCH (10:36)
[2016-12-28] MEDS: Vancomycin 125 MG/5 ML SOLN (ORAL/RECTAL) PO SCH ×2 (10:36→13:19)
--- NOTE | 2016-12-28 10:54 | PN ---
DATE: 12/28/2016 LOCATION: 671, bed A. This is a 61-year-old male, seen and examined in rounds today without reported clinical changes or si gnificant new complaint, somewhat tolerating oral intake well. The entire chart is reviewed including, but not limited to, the most recent lab and radiology study r esults, current and previous medication lists, current and previous medical events and the latest blo od glucose level is 104. Case discussed at length with the staff on the floor and the patient still has low hemoglobin and hematocrit, but normal platelet count with low sodium 128, low BUN and creatin ine and low calcium of 7.3. PHYSICAL EXAMINATION: GENERAL: A 61-year-old male. VITAL SIGNS: Afebrile with pulse of 70, respiratory rate 20-22, blood pressure 114/54. HEENT: Showed pale, dry oral mucoid membrane. Nonicteric sclerae. LUNGS: Few scattered crepitation, decreased air entry at bases. HEART: Positive S1 and S2. ABDOMEN: Soft. Bowel sounds are present. No mass or organomegaly. RECTAL: The patient refused. EXTREMITIES: Without significant edema, clubbing or cyanosis. NEUROLOGIC: No reported new neurological deficits, sensory or motor. IMPRESSION: 1. Pseudomembranous colitis, gradually improving with less diarrhea. 2. Reported known history of Down syndrome. 3. Electrolyte imbalance, gradually corrected. 4. Reported urinary tract infection, clinically improved. 5. Anemia, secondary to above. 6. Known history of pneumonia, congestive heart failure. 7. Known history of peptic ulcer disease. 8. Malnutrition with hypoalbuminemia, gradually improving. SUGGESTION: 1. Agree with your plan. 2. Continue current management. 3. Vancomycin p.o. 4. Repeat stool for Clostridium difficile. 5. No need for aggressive gastrointestinal workup in the meantime and further recommendation to foll ow. Joon Caceres MD cc: 14 TT: 12/28/2016 10:54:16 Confirmation # [id number] Dictation # [id number] en
[2016-12-28 12:17] LABS: CHLORIDE 96 mmol/L (98-107)
[2016-12-28 12:18] LABS: POTASSIUM 5.6 mmol/L (3.6-5.2); SODIUM 129 mmol/L (132-148)
[2016-12-28 12:20] LABS: GFR AFRICAN-AMERICAN > 60
[2016-12-28 12:21] LABS: BLOOD UREA NITROGEN 5 mg/dL (9-20); CALCIUM 7.9 mg/dl (8.6-10.4); CARBON DIOXIDE 25 mmol/L (22-30); GLUCOSE,RANDOM 75 mg/dL (75-110)
--- NOTE | 2016-12-28 18:19 | CP.PCM.PN ---
Subjective - Date & Time of Evaluation Date of Evaluation: 12/28/16 Time of Evaluation: 11:00 - Subjective Subjective: Awake, retarded, afebrile, no acute distress. Objective - Vital Signs/Intake and Output Vital Signs (last 24 hours): Temp Pulse Resp BP Pulse Ox 97.5 F L 65 18 101/57 L 95 12/28/16 07:00 12/28/16 07:00 12/28/16 07:00 12/28/16 07:00 12/28/16 07:00 - Labs Labs: 12/26/16 08:47 12/28/16 12:03 Assessment and Plan - Assessment and Plan (Free Text) Assessment: Patient is seen and examined, no acute distress, no diarrhea, oral intake is improving as per family. D/W DR Matamoros, plan to discharge home today on vancomycin po for 14 days for c diff colitis To follow up with PMD in 1 week.
--- NOTE | 2017-01-01 15:10 | DS ---
He came in by his sister to the Emergency Room complaining of vomiting blood and having diarrhea and he has a history of loss of appetite, cachectic, confined to bed. When he came in, he was very pale and cachectic. His blood pressure was 102/48. His blood test was hemoglobin 11.4, 33.8 and blood sugar was 116. His kidney function was normal and his glucose was 97. We checked the stoo l for C. difficile, was negative. He was admitted. He was coughing also and had some fever at home and when we had the chest x-ray, there was some congestion, so he was seen by Dr. Donahue for infectio us disease. He started on antibiotics and nebulizer treatment. He was also taking calcium carbonate and started on metronidazole IV and we gave him IV fluids. He also continued to improve and he was started on vancomycin 125 p.o. q.i.d. before the discharge, to continue on that at home for another 7 -10 days. X-ray showed some retention of the stool. He was given Dulcolax. If he does not have any bowel movement, he will be able to take it at home. So the patient has acute bronchitis, has acute gastroenteritis and he has Down syndrome, cachexia and he has anemia and hypocalcemia. He was initia lly having hyponatremia, but he got IV fluids to improve that and he did have urinary tract infection , which he was also treated for it and the last urinalysis was completely clear and he will follow up in my office. Fina Matamoros MD cc: [id number] TT: 01/01/2017 15:09:29 en
== END 2016-12-28 16:30 | disposition home or self-care (01) | DRG 551 ==
LOC: C.ER 10:26 → C.9E 13:09 → C.6T 14:30
PROVIDERS: ADMIT Internal Medicine; ATTEND Internal Medicine
PROC: 3E0G76Z Introduction of Nutritional Substance into Upper GI, Via Natural or Artificial Opening (ICD-10-PCS; principal; 2016-12-20)
DX: A04.7 Enterocolitis due to Clostridium difficile (principal); J18.9 Pneumonia, unspecified organism; I11.0 Hypertensive heart disease with heart failure; E46 Unspecified protein-calorie malnutrition; I50.9 Heart failure, unspecified; E87.1 Hypo-osmolality and hyponatremia; Q23.1 Congenital insufficiency of aortic valve; R13.10 Dysphagia, unspecified; N39.0 Urinary tract infection, site not specified; J20.9 Acute bronchitis, unspecified; E86.0 Dehydration; E83.51 Hypocalcemia; R62.7 Adult failure to thrive; Q90.9 Down syndrome, unspecified; E03.9 Hypothyroidism, unspecified; B96.20 Unspecified Escherichia coli [E. coli] as the cause of diseases classified elsewhere; E78.5 Hyperlipidemia, unspecified; D64.9 Anemia, unspecified; K27.9 Peptic ulcer, site unspecified, unspecified as acute or chronic, without hemorrhage or perforation; K43.9 Ventral hernia without obstruction or gangrene; K59.00 Constipation, unspecified; Z87.01 Personal history of pneumonia (recurrent); Z74.01 Bed confinement status

== ENCOUNTER 2017-12-11 20:46 | Observation (INO) | payer OTHER ==
[2017-12-11 20:47] VITALS: BMI 21.6
--- NOTE | 2017-12-11 21:07 | C.PDOC ---
History Of Present Illness 62 y/o male, w/PMHx includes Anemia, Hypertension, Hypothyroidism SBO, and aortic BIBA for evaluation of vomiting and diarrhea, Hx obtained by sister on the phone, patient is mentally delayed & bed bound. Per sister, patient has been vomiting and has diarrhea since 1 pm today.He had multiple loose bowel movements and his last bm was in the afternoon today. He is chronically constipated. He has not been using abx for over 1 year. Denies fever, chills, and other complaints. Time Seen by Provider: 12/11/17 21:03 Chief Complaint (Nursing): Abdominal Pain History Per: Family History/Exam Limitations: clinical condition Onset/Duration Of Symptoms: Hrs Current Symptoms Are (Timing): Still Present Severity: Moderate Associated Symptoms: denies: Fever, Chills Past Medical History Reviewed: Historical Data, Nursing Documentation, Vital Signs Vital Signs: Last Vital Signs Temp 99.1 F 12/11/17 21:11 Pulse 64 12/11/17 20:54 Resp 18 12/11/17 20:54 BP 125/68 12/11/17 20:54 Pulse Ox 94 L 12/11/17 21:48 - Medical History PMH: Anemia, HTN, Hypothyroidism, Obstructive Bowel, Pneumonia Denies: Chronic Kidney Disease Other Surgeries: Hx of surgeries - [facility] Procedures CENTRAL VENOUS CATHETER PLACEMENT WITH GUIDANCE (08/28/13) DX ULTRASOUND-HEART (03/26/13) IMPACTED FECES REMOVAL (12/20/12) INFUSION OF VASOPRESSOR AGENT (08/28/13) INTRODUCTION OF NUTRITIONAL INTO UP GI, VIA OPENING (12/16/16) OTH INCIDENT APPENDECTOMY (01/04/13) PACKED CELL TRANSFUSION (01/21/13) [id number] BOWEL NEC (01/04/13) VACCINATION NEC (01/05/15) VENOUS CATHETERIZATION NEC (10/20/13) Family History: States: No Known Family Hx - Social History Hx Tobacco Use: No Hx Alcohol Use: No Hx Substance Use: No - Immunization History Hx Tetanus Toxoid Vaccination: No Hx Influenza Vaccination: Yes Hx Pneumococcal Vaccination: Yes Review Of Systems Except As Marked, All Systems Reviewed And Found Negative. Constitutional: Negative for: Fever, Chills Gastrointestinal: Positive for: Vomiting, Diarrhea Genitourinary: Negative for: Dysuria, Hematuria Physical Exam - Physical Exam Appears: Non-toxic, No Acute Distress Skin: Normal Color, Warm, Other (good turgor) Head: Atraumatic, Normacephalic Eye(s): bilateral: Normal Inspection Gastrointestinal/Abdominal: Normal Exam, Soft, No Tenderness Extremity: Other ((-) chronic contractures) Neurological/Psych: Other (nonverbal, appropriately interactive with family) ED Course And Treatment - Laboratory Results Result Diagrams: 12/11/17 22:10 12/11/17 22:10 ECG: Interpreted By Me, Viewed By Me ECG Rhythm: Sinus Rhythm ECG Interpretation: No Changes From Prior (12/16/16) Rate From EC O2 Sat by Pulse Oximetry: 94 Pulse Ox Interpretation: Abnormal - Radiology CXR: Interpreted by Me, Viewed By Me CXR Interpretation: Yes: No Acute Disease Progress - Re-Evaluation Re-evaluation Note: 12/11/17 22:43 PERSIST DIARRHEA. VSS. D/W DR MATAMOROS WILL ADMIT - Data Reviewed Data Reviewed: Lab, EKG, Old records Medical Decision Making Medical Decision Making: Plan: --Labs --UA --EKG --CXR Disposition Counseled Patient/Family Regarding: Studies Performed, Diagnosis - Disposition Disposition: HOSPITALIZED Disposition Time: 22:43 Condition: SERIOUS Forms: [facility] (Bulgarian) - POA Present On Arrival: None - Clinical Impression Clinical Impression: Vomiting, Diarrhea - Scribe Statement The provider has reviewed the documentation as recorded by the Liliana Mckeon Provider Attestation: All medical record entries made by the Scribe were at my direction and personally dictated by me. I have reviewed the chart and agree that the record accurately reflects my personal performance of the history, physical exam, medical decision making, and the department course for this patient. I have also personally directed, reviewed, and agree with the discharge instructions and disposition. Decision To Admit - Pt Status Changed To: Hospital Disposition Of: Observation - . Bed Request Type: Regular Admitting Physician: Fina Matamoros Patient Diagnosis: Vomiting, Diarrhea
[2017-12-11] MEDS ORDERED: Sodium Chloride 0.9% 1,000 ML IV ONE (21:14)
[2017-12-11 22:19] LABS: BASO % 0.5 % (0.0-2.0); EOS % 0.3 % (0.0-4.0); LYMPH # 2.3 K/uL (1.0-4.3); LYMPH % 32.2 % (20.0-40.0); MEAN CELL VOLUME 100.8 fL (80.0-94.0); MEAN CORPUSCULAR HEMOGLOBIN 35.5 pg (27.0-31.0); MEAN CORPUSCULAR HGB CONC 35.2 g/dL (33.0-37.0); MEAN PLATELET VOLUME 6.8 fL (7.2-11.7); MONO # 0.1 K/uL (0.0-0.8); MONO % 1.6 % (0.0-10.0); NEUT # 4.7 K/uL (1.8-7.0); NEUT % 65.4 % (50.0-75.0); NRBC % 0.1 % (0.0-2.0); RBC 4.35 Mil/uL (4.40-5.90); RED CELL DISTRIBUTION WIDTH 13.9 % (11.5-14.5); WHITE BLOOD COUNT 7.1 K/uL (4.8-10.8)
[2017-12-11 22:23] LABS: HEMOGLOBIN 15.4 g/dL (12.0-18.0)
[2017-12-11 22:29] LABS: ALB/GLOB RATIO 0.8 (1.0-2.1); ALBUMIN 3.8 g/dL (3.5-5.0); AST/SGOT 33 U/L (17-59); BLOOD UREA NITROGEN 15 mg/dL (9-20); CALCIUM 9.1 mg/dl (8.6-10.4); GFR AFRICAN-AMERICAN > 60; GFR NON-AFRICAN AMERICAN > 60; LIPASE 31 U/L (23-300)
[2017-12-11 22:30] LABS: ALT/SGPT < 6 U/L (21-72)
[2017-12-11 22:39] LABS: SQUAMOUS EPITHIAL 11 /hpf (0-5); URINE BACTERIA RARE (<OCC); URINE BILIRUBIN NEGATIVE (NEGATIVE); URINE BLOOD NEGATIVE (NEGATIVE); URINE CLARITY Hazy (Clear); URINE COLOR Yellow (YELLOW); URINE GLUCOSE (UA) NORMAL (Normal); URINE LEUKOCYTE ESTERASE NEG Leu/uL (Negative); URINE PROTEIN NEGATIVE (NEGATIVE); URINE UROBILINOGEN NORMAL mg/dL (0.2-1.0)
[2017-12-11] MEDS ORDERED: Loperamide Hydrochloride 1 mg/5 ml Cup PO PRN (22:47)
[2017-12-11 23:58] LABS: FREE T4 1.16 ng/dL (0.78-2.19)
[2017-12-12] MEDS: Dextrose 5%/0.45% NS 1,000 ML IV SCH (00:45)
--- NOTE | 2017-12-12 11:06 | RAD ---
PROCEDURE: CHEST RADIOGRAPH, 1 VIEW HISTORY: Abdominal pain COMPARISON: Comparison chest 12/16/2016. Comparison also made with CT scan of the abdomen 12/16/2016 which also imaged both lung bases. FINDINGS: LUNGS: Chronic appearing bibasilar atelectasis and or scarring/fibrosis changes [id number] PLEURA: No pneumothorax or pleural fluid seen. CARDIOVASCULAR: Heart size unchanged. Aorta is slightly ectatic and uncoiled. OSSEOUS STRUCTURES: No significant abnormalities. VISUALIZED UPPER ABDOMEN: Normal. OTHER FINDINGS: None. IMPRESSION: Chronic appearing bibasilar atelectasis and or scarring/fibrosis changes [id number]
--- NOTE | 2017-12-12 12:32 | CP.PCM.HP ---
History of Present Illness - History of Present Illness History of Present Illness: pt came to er for vomiting diarehea and fever Present on Admission - Present on Admission Any Indicators Present on Admission: No Review of Systems - Review of Systems Systems not reviewed;Unavailable: Acuity of Condition, Altered Mental Status - Constitutional Constitutional: Fever - EENT Eyes: Other Visual Disturbances Ears: As Per HPI Nose/Mouth/Throat: As Per HPI - Cardiovascular Additional comments: abn ekg - Respiratory Respiratory: As Per HPI - Gastrointestinal Gastrointestinal: Diarrhea, Vomiting - Genitourinary Genitourinary: As Per HPI - Musculoskeletal Musculoskeletal: Muscle Weakness - Neurological Neurological: Abnormal Speech Additional comments: mental retardation - Endocrine Endocrine: Fatigue Past Patient History - Infectious Disease Hx of Infectious Diseases: C.diff - Past Medical History & Family History Past Medical History?: Yes - Past Social History Smoking Status: Never Smoked - CARDIAC Hx Hypertension: Yes - PULMONARY Hx Pneumonia: Yes - NEUROLOGICAL Hx Neurological Disorder: Yes Other/Comment: hx down syndrome - HEENT Hx HEENT Problems: No - RENAL Hx Chronic Kidney Disease: No - ENDOCRINE/METABOLIC Hx Hypothyroidism: Yes - HEMATOLOGICAL/ONCOLOGICAL Hx Anemia: Yes - INTEGUMENTARY Hx Dermatological Problems: No - MUSCULOSKELETAL/RHEUMATOLOGICAL Hx Musculoskeletal Disorders: No - GASTROINTESTINAL Hx Gastrointestinal Disorders: Yes Other/Comment: hx obstinal obstruction had surgery - GENITOURINARY/GYNECOLOGICAL Other/Comment: Hx: pyelonephritis Incontinent of urine. 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 - ANESTHESIA Hx Anesthesia: Yes Hx Anesthesia Reactions: No Hx Malignant Hyperthermia: No Meds Allergies/Adverse Reactions: Allergies Allergy/AdvReac Type Severity Reaction Status Date / Time No Known Allergies Allergy Verified 12/16/15 19:16 Physical Exam - Constitutional Appears: Non-toxic - Head Exam Head Exam: ATRAUMATIC - Eye Exam Eye Exam: Periorbital swelling Pupil Exam: NORMAL ACCOMODATION - ENT Exam ENT Exam: Mucous Membranes Dry - Neck Exam Neck exam: Positive for: Normal Inspection - Respiratory Exam Respiratory Exam: Clear to Auscultation Bilateral - Cardiovascular Exam Cardiovascular Exam: REGULAR RHYTHM - GI/Abdominal Exam GI & Abdominal Exam: Normal Bowel Sounds - Extremities Exam Extremities exam: Positive for: normal inspection - Back Exam Back exam: NORMAL INSPECTION - Neurological Exam Neurological exam: Altered - Psychiatric Exam Psychiatric exam: Normal Affect - Skin Skin Exam: Pallor Results - Vital Signs Recent Vital Signs: Last Vital Signs Temp 99 F 12/12/17 07:30 Pulse 60 12/12/17 07:30 Resp 22 12/12/17 07:30 BP 107/56 L 12/12/17 07:30 Pulse Ox 99 12/12/17 07:30 - Labs Result Diagrams: 12/11/17 22:10 12/11/17 22:10 Labs: Laboratory Results - last 24 hr 12/11/17 12/11/17 12/11/17 21:15 22:10 22:10 WBC 7.1 RBC 4.35 L Hgb 15.4 D Hct 43.8 MCV 100.8 H MCH 35.5 H MCHC 35.2 RDW 13.9 Plt Count 219 MPV 6.8 L Neut % (Auto) 65.4 Lymph % (Auto) 32.2 Isabella % (Auto) 1.6 Eos % (Auto) 0.3 Baso % (Auto) 0.5 Neut # (Auto) 4.7 Lymph # (Auto) 2.3 Isabella # (Auto) 0.1 Eos # (Auto) 0.0 Baso # (Auto) 0.0 Sodium 135 Potassium 3.9 Chloride 98 Carbon Dioxide 20 L Anion Gap 21 H BUN 15 Creatinine 0.7 L Est GFR ( Amer) > 60 Est GFR (Non-Af Amer) > 60 Random Glucose 146 H Calcium 9.1 Total Bilirubin 1.1 AST 33 ALT < 6 L D Alkaline Phosphatase 80 Total Protein 8.4 H Albumin 3.8 Globulin 4.6 H Albumin/Globulin Ratio 0.8 L Lipase 31 Free T4 TSH 3rd Generation Urine Color Urine Clarity Urine pH Ur Specific [place] Urine Protein Urine Glucose (UA) Urine Ketones Urine Blood Urine Nitrate Urine Bilirubin Urine Urobilinogen Ur Leukocyte Esterase Urine WBC (Auto) Urine RBC (Auto) Ur Squamous Epith Cells Urine Bacteria C. difficile Ag & Toxin Negative 12/11/17 12/11/17 22:32 23:18 WBC RBC Hgb Hct MCV MCH MCHC RDW Plt Count MPV Neut % (Auto) Lymph % (Auto) Isabella % (Auto) Eos % (Auto) Baso % (Auto) Neut # (Auto) Lymph # (Auto) Isabella # (Auto) Eos # (Auto) Baso # (Auto) Sodium Potassium Chloride Carbon Dioxide Anion Gap BUN Creatinine Est GFR ( Amer) Est GFR (Non-Af Amer) Random Glucose Calcium Total Bilirubin AST ALT Alkaline Phosphatase Total Protein Albumin Globulin Albumin/Globulin Ratio Lipase Free T4 1.16 TSH 3rd Generation 1.62 Urine Color Yellow Urine Clarity Hazy Urine pH 6.0 Ur Specific [place] 1.015 Urine Protein Negative Urine Glucose (UA) Normal Urine Ketones Negative Urine Blood Negative Urine Nitrate Negative Urine Bilirubin Negative Urine Urobilinogen Normal Ur Leukocyte Esterase Neg Urine WBC (Auto) < 1 Urine RBC (Auto) 1 Ur Squamous Epith Cells 11 H Urine Bacteria Rare C. difficile Ag & Toxin - EKG Data Interpretation: Acute Ischemia Assessment & Plan - Assessment and Plan (Free Text) Assessment: acute gastroenteritis down syndrome hypothyroid generalised weekness new iscemia Plan: as per orders - Date & Time Date: 12/12/17 Time: 12:37
[2017-12-13] MEDS: Dextrose 5%/0.45% NS 1,000 ML IV SCH (01:38)
[2017-12-13] MEDS: Enoxaparin 30 mg Syringe SC SCH (09:46)
[2017-12-13 15:30] VITALS: RESP 20
--- NOTE | 2017-12-13 20:16 | CP.PCM.CON ---
History of Present Illness - History of Present Illness History of Present Illness: Patient presents with vomiting and diarrhea No fevers or chills No ADHF or acute distress Patient has cheonic failure to thrive, hx of down's syndrome, functional dependent with hx of bicuspid AV stenosis severe. Past Patient History - Infectious Disease Hx of Infectious Diseases: C.diff - Past Medical History & Family History Past Medical History?: Yes - Past Social History Smoking Status: Never Smoked - CARDIAC Hx Hypertension: Yes - PULMONARY Hx Pneumonia: Yes - NEUROLOGICAL Hx Neurological Disorder: Yes Other/Comment: hx down syndrome - HEENT Hx HEENT Problems: No - RENAL Hx Chronic Kidney Disease: No - ENDOCRINE/METABOLIC Hx Hypothyroidism: Yes - HEMATOLOGICAL/ONCOLOGICAL Hx Anemia: Yes - INTEGUMENTARY Hx Dermatological Problems: No - MUSCULOSKELETAL/RHEUMATOLOGICAL Hx Musculoskeletal Disorders: No - GASTROINTESTINAL Hx Gastrointestinal Disorders: Yes Other/Comment: hx obstinal obstruction had surgery - GENITOURINARY/GYNECOLOGICAL Other/Comment: Hx: pyelonephritis Incontinent of urine. 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 - ANESTHESIA Hx Anesthesia: Yes Hx Anesthesia Reactions: No Hx Malignant Hyperthermia: No Meds Allergies/Adverse Reactions: Allergies Allergy/AdvReac Type Severity Reaction Status Date / Time No Known Allergies Allergy Verified 12/16/15 19:16 - Medications Medications: Current Medications Enoxaparin Sodium (Lovenox) 30 mg SC DAILY [facility] Last Admin: 12/13/17 09:46 Dose: 30 mg Dextrose/Sodium Chloride (Dextrose 5%/0.45% Ns 1000 Ml) 1,000 mls @ 80 mls/hr IV .[id number] [facility] Last Admin: 12/13/17 01:38 Dose: 80 mls/hr Loperamide HCl (Imodium) 1 mg PO TID PRN PRN Reason: Diarrhea Ondansetron HCl (Zofran Inj) 4 mg IVP Q6H PRN PRN Reason: Nausea/Vomiting Physical Exam - Constitutional Appears: No Acute Distress, Chronically Ill - Head Exam Head Exam: ATRAUMATIC, NORMAL INSPECTION, NORMOCEPHALIC (down syndrome facies) - Eye Exam Eye Exam: Normal appearance. absent: Scleral icterus - ENT Exam ENT Exam: Mucous Membranes Moist - Neck Exam Neck exam: Positive for: Normal Inspection - Respiratory Exam Respiratory Exam: Clear to Auscultation Bilateral. absent: Rhonchi, Wheezes - Cardiovascular Exam Cardiovascular Exam: REGULAR RHYTHM, Systolic Murmur (3/6 with a soft A2 at RUSB ) - Extremities Exam Extremities exam: Positive for: pedal pulses present. Negative for: calf tenderness, normal inspection (muscle wasting LE's), pedal edema - Neurological Exam Neurological exam: Altered (non communicative) Results - Vital Signs Recent Vital Signs: Last Vital Signs Temp 98.3 F 12/13/17 15:00 Pulse 67 12/13/17 15:00 Resp 20 12/13/17 15:00 BP 109/68 12/13/17 15:00 Pulse Ox 100 12/13/17 15:00 - Labs Result Diagrams: 12/11/17 22:10 12/11/17 22:10 Labs: Laboratory Results - last 24 hr 12/13/17 07:18 Troponin I < 0.0120 - EKG Data EKG Interpreted by: Myself (NSR, ns ST/T changes anterior and lateral) - Imaging and Cardiology Chest x-ray Status: Image reviewed by me (basilar atelectasis, no clear infiltrates or congestion) Assessment & Plan - Assessment and Plan (Free Text) Assessment: 62 y/o 1. Downs Syndrome 2. Biscupid aortic valve - with severe 3. 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 ECHO done 12/13/17 directly viewed by me: Normal LVEF, mild inc in PASP, bicupsid AV with mild AI and severe with a max zainab 4.25 m/s and a mean gradient of 47mmHg Currently patient without any sx's or sx's of ADHF, Angina or hemodynamic instability. Due to frailty score has deferred AVR surgery. conservative Rx, DVT prophylaxis Nutirition and supportive care. - Date & Time Date: 12/14/17 Time: 10:24
[2017-12-14] MEDS: Dextrose 5%/0.45% NS 1,000 ML IV SCH ×2 (01:00→05:21)
[2017-12-14 08:21] VITALS: O2SAT 100
[2017-12-14] MEDS: Enoxaparin 30 mg Syringe SC SCH (09:51)
--- NOTE | 2017-12-14 10:40 | CP.PCM.PN ---
Subjective - Date & Time of Evaluation Date of Evaluation: 12/14/17 Time of Evaluation: 10:37 - Subjective Subjective: pt comfortable no more diarhea no vomiting tolerating diet well Objective - Vital Signs/Intake and Output Vital Signs (last 24 hours): Temp Pulse Resp BP Pulse Ox 97.7 F 48 L 20 101/52 L 100 12/14/17 08:00 12/14/17 08:00 12/14/17 08:00 12/14/17 08:00 12/14/17 08:00 Intake and Output: 12/14/17 12/14/17 06:59 18:59 Intake Total 1600 Balance 1600 - Medications Medications: Current Medications Enoxaparin Sodium (Lovenox) 30 mg SC DAILY [facility] Last Admin: 12/14/17 09:51 Dose: 30 mg Dextrose/Sodium Chloride (Dextrose 5%/0.45% Ns 1000 Ml) 1,000 mls @ 80 mls/hr IV .[id number] [facility] Last Admin: 12/14/17 05:21 Dose: 80 mls/hr Loperamide HCl (Imodium) 1 mg PO TID PRN PRN Reason: Diarrhea Ondansetron HCl (Zofran Inj) 4 mg IVP Q6H PRN PRN Reason: Nausea/Vomiting - Labs Labs: 12/11/17 22:10 12/11/17 22:10 - Constitutional Appears: Well - Head Exam Head Exam: ATRAUMATIC - Eye Exam Eye Exam: Normal appearance Pupil Exam: NORMAL ACCOMODATION - ENT Exam ENT Exam: Mucous Membranes Moist - Neck Exam Neck Exam: Full ROM - Respiratory Exam Respiratory Exam: Clear to Ausculation Bilateral - Cardiovascular Exam Cardiovascular Exam: REGULAR RHYTHM - GI/Abdominal Exam GI & Abdominal Exam: Normal Bowel Sounds - Extremities Exam Extremities Exam: Normal Inspection - Back Exam Back Exam: NORMAL INSPECTION - Neurological Exam Neurological Exam: Altered - Skin Skin Exam: Normal Color Assessment and Plan - Assessment and Plan (Free Text) Assessment: ac gastroenteritis improved down syndrme Plan: will d/c home
[2017-12-14 16:01] VITALS: BP 114/57; PULSE 64; TEMP 97.4
[2017-12-15] MEDS ORDERED: Pneumococcal 23-Valent Vaccine IM ONE (10:00)
== END 2017-12-14 17:23 | disposition home or self-care (01) ==
LOC: C.ER 20:46 → C.9E 22:44 → C.3T 23:23
PROVIDERS: ADMIT Internal Medicine; ATTEND Internal Medicine
DX: K52.9 Noninfective gastroenteritis and colitis, unspecified (principal); K59.09 Other constipation; E03.9 Hypothyroidism, unspecified; I10 Essential (primary) hypertension; Q90.9 Down syndrome, unspecified; R62.7 Adult failure to thrive; Z87.01 Personal history of pneumonia (recurrent); Z68.1 Body mass index [BMI] 19.9 or less, adult
CPT/HCPCS: 36415; 71045; 80053; 81001; 83690; 84439; 84443; 84484; 85025; 87040; 87045; 87086; 87230; 93306; 96374; 97163; 99285; G0378; G8981; G8982; G8983; J1650; J2405; J7040; J7042

== ENCOUNTER 2018-01-03 21:33 | Inpatient (IN) | payer OTHER ==
[2018-01-03 21:33] VITALS: BMI 21.6
[2018-01-03 22:25] LABS: BASO # 0.1 K/uL (0.0-0.2); EOS # 0.1 K/uL (0.0-0.7); EOS % 1.1 % (0.0-4.0); HEMOGLOBIN 14.3 g/dL (12.0-18.0); LYMPH # 2.1 K/uL (1.0-4.3); LYMPH % 25.1 % (20.0-40.0); MEAN CELL VOLUME 98.5 fL (80.0-94.0); MEAN CORPUSCULAR HEMOGLOBIN 34.3 pg (27.0-31.0); MEAN CORPUSCULAR HGB CONC 34.8 g/dL (33.0-37.0); MEAN PLATELET VOLUME 6.8 fL (7.2-11.7); MONO # 0.3 K/uL (0.0-0.8); MONO % 3.1 % (0.0-10.0); NEUT # 5.9 K/uL (1.8-7.0); NEUT % 69.7 % (50.0-75.0); NRBC % 0.1 % (0.0-2.0); RBC 4.17 Mil/uL (4.40-5.90); RED CELL DISTRIBUTION WIDTH 14.2 % (11.5-14.5); WHITE BLOOD COUNT 8.5 K/uL (4.8-10.8)
[2018-01-03 22:32] LABS: INR 1.1; PROTHROMBIN TIME 11.7 SECONDS (9.7-12.2)
[2018-01-03] MEDS ORDERED: cefTRIAXone IV 1 gm in Dextros 50 ML IV STA (22:32)
[2018-01-03] MEDS ORDERED: Azithromycin 500mg/250ML NS 500 MG/250 ML BAG IV STA (22:32)
--- NOTE | 2018-01-03 22:38 | C.PDOC ---
History Of Present Illness 62 year old male with a history of down-syndrome, bicuspid aortic valve disease , aortic stenosis, gastroenteritis, hypothyroid, and pneumonia. As per patient' s history, an echo was done on 12/03/17 and was directly viewed. It resulted in normal LVEF, bisuspid AV with mild AI and severe with a maximum velocity of 3.25 m/s. Patient was brought in today by his family due to persistent hiccups and decreased appetite for the past two days. Patient has an increasing fever starting at 101F which eventually increased to 102F. Patient's family reports he was given Tylenol at 4PM. Patient's past surgical includes a surgery for a large bowel obstruction status-post resection five years ago. Patient only takes Vitamins as of now. Time Seen by Provider: 01/03/18 21:55 Chief Complaint (Nursing): Fever History Per: Patient History/Exam Limitations: no limitations Onset/Duration Of Symptoms: Days (2) Current Symptoms Are (Timing): Still Present Associated Symptoms: Fever, Other (hiccups, decreased appetite.) Past Medical History Reviewed: Historical Data, Nursing Documentation, Vital Signs Vital Signs: Last Vital Signs Temp 97.9 F 01/04/18 08:00 Pulse 59 L 01/04/18 08:00 Resp 20 01/04/18 08:00 BP 110/60 01/04/18 08:00 Pulse Ox 95 01/04/18 13:28 - Medical History PMH: Anemia, HTN, Hypothyroidism, Obstructive Bowel, Pneumonia Denies: Chronic Kidney Disease Other PMH: Bicuspid aortic valve disease, aortic stenosis, gastroenteritis, Other Surgeries: Surgery for large bowel obstruction. - [facility] Procedures CENTRAL VENOUS CATHETER PLACEMENT WITH GUIDANCE (08/28/13) DX ULTRASOUND-HEART (03/26/13) IMPACTED FECES REMOVAL (12/20/12) INFUSION OF VASOPRESSOR AGENT (08/28/13) INTRODUCTION OF NUTRITIONAL INTO UP GI, VIA OPENING (12/16/16) OTH INCIDENT APPENDECTOMY (01/04/13) PACKED CELL TRANSFUSION (01/21/13) [id number] BOWEL NEC (01/04/13) VACCINATION NEC (01/05/15) VENOUS CATHETERIZATION NEC (10/20/13) Family History: States: No Known Family Hx - Social History Hx Tobacco Use: No Hx Alcohol Use: No Hx Substance Use: No - Immunization History Hx Tetanus Toxoid Vaccination: No Hx Influenza Vaccination: Yes Hx Pneumococcal Vaccination: Yes Review Of Systems Except As Marked, All Systems Reviewed And Found Negative. Constitutional: Positive for: Fever Gastrointestinal: Positive for: Other (hiccups, decreased appetite) Neurological: Positive for: Other (no eye contact, baseline) Physical Exam - Physical Exam Appears: Non-toxic Skin: Normal Color Head: Atraumatic, Normacephalic Eye(s): bilateral: Normal Inspection, PERRL, EOMI Nose: Normal Teeth: Edentulous Throat: Normal Neck: Normal Chest: Symmetrical Cardiovascular: Rhythm Regular Respiratory: Normal Breath Sounds Gastrointestinal/Abdominal: Normal Exam Male Genital: Normal Inspection Extremity: Normal ROM Extremity: Bilateral: Atraumatic, No Pedal Edema, Unable To Bear Weight Neurological/Psych: No Oriented x3, No Normal Speech, No Normal Cognition, No Normal Cranial Nerves, No Eyes Open With Command Pain Response: Withdraws With Pain ED Course And Treatment - Laboratory Results Result Diagrams: 01/03/18 22:16 01/03/18 22:16 O2 Sat by Pulse Oximetry: 95 (RA) Pulse Ox Interpretation: Normal Medical Decision Making Medical Decision Making: Plan: CT Chest w/o Contrast CT Head w/o Contrast CMP Lipase Troponin CBC PTT Prothrombin TIme CXR one View Zosyn 4.5 gm in 100ml IV Vancomycin 1gm Blood Culture Urine Culture O2 via Nasal Cannula Urinalysis Broad specrum ABx to be administered for hospital acquired pneumonia. Rectal temperature obtained at 99.6F Upon speaking with Dr. Matamoros, patient will be admitted after 30 minutes of critical care. Disposition Counseled Patient/Family Regarding: Diagnosis - Disposition Disposition: HOSPITALIZED Disposition Time: 13:27 Condition: FAIR - Clinical Impression Clinical Impression: Down's syndrome, Pneumonia - Scribe Statement The provider has reviewed the documentation as recorded by the Scribe (Rosalino Mossqvi) Provider Attestation: All medical record entries made by the Scribe were at my direction and personally dictated by me. I have reviewed the chart and agree that the record accurately reflects my personal performance of the history, physical exam, medical decision making, and the department course for this patient. I have also personally directed, reviewed, and agree with the discharge instructions and disposition.
[2018-01-03 22:39] LABS: ALB/GLOB RATIO 0.9 (1.0-2.1); ALBUMIN 4.1 g/dL (3.5-5.0); ALT/SGPT 25 U/L (21-72); AST/SGOT 34 U/L (17-59); BLOOD UREA NITROGEN 14 mg/dL (9-20); CALCIUM 9.6 mg/dl (8.6-10.4); GFR AFRICAN-AMERICAN > 60; GFR NON-AFRICAN AMERICAN > 60; LIPASE 59 U/L (23-300)
[2018-01-03] MEDS ORDERED: Vancomycin 1 gm/NS 200 ml 1 GM/200 ML BAG IVPB STA (22:39)
[2018-01-03] MEDS ORDERED: Piperacill/Tazo 4.5gm in Dex 4.5 GM/100 ML BAG IV STA (22:39)
--- NOTE | 2018-01-03 23:23 | CT ---
EXAM: CT Head Without Intravenous Contrast EXAM DATE/TIME: Exam ordered 01/03/2018 10:00 PM CLINICAL HISTORY: 62 years old, male; Signs and symptoms; Altered mental status/memory loss; Confusion or disorientation; Additional info: AMS TECHNIQUE: Axial computed tomography images of the head/brain without intravenous contrast. All CT scans at this facility use one or more dose reduction techniques, viz.: automated exposure control; ma/kV adjustment per patient size (including targeted exams where dose is matched to indication; i.e. head); or iterative reconstruction technique. Coronal and sagittal reformatted images were created and reviewed. COMPARISON: No relevant prior studies available. FINDINGS: Brain: Coarse calcifications are noted in the basal ganglia bilaterally. Low density is noted in the periventricular white matter extending into the garcia radiata and the centrum semiovale bilaterally. There is a cavum vergae. No hemorrhage. There is mild cortical atrophy. Ventricles: There is ventriculomegaly. Bones/joints: Unremarkable. No acute fracture. Soft tissues: Unremarkable. Sinuses: Unremarkable as visualized. No acute sinusitis. Mastoid air cells: Unremarkable as visualized. No mastoid effusion. IMPRESSION: 1. Hydrocephalus. 2. Low-density in the periventricular white matter which may reflect transependymal flow of fluid in a patient with hydrocephalus. Small vessel ischemic change is another consideration.
--- NOTE | 2018-01-04 02:39 | CT ---
EXAM: CT Chest Without Intravenous Contrast CLINICAL HISTORY: 62 years old, male; Pain and signs and symptoms; Fever; Chest pain; Patient HX: 09-10-13; Additional info: B/l pneumonia TECHNIQUE: Axial computed tomography images of the chest without intravenous contrast. All CT scans at this facility use one or more dose reduction techniques, viz.: automated exposure control; ma/kV adjustment per patient size (including targeted exams where dose is matched to indication; i.e. head); or iterative reconstruction technique. Coronal and sagittal reformatted images were created and reviewed. COMPARISON: CT - CHEST W/O CONTRAST 2013-09-10 10:15 FINDINGS: Limitations: Lack of intravenous contrast. Motion artifact - mild. Lungs: Mild peripheral atelectasis/scarring. Mild apical scarring. Patchy groundglass opacities within lower lobes. Pleural space: Trace RIGHT pleural effusion. No pneumothorax. Heart: Mild cardiomegaly. No significant pericardial effusion. Bones/joints: Mild degenerative changes of spine. No acute fracture. Soft tissues: Unremarkable. Vasculature: Eiyo-fz-gxmbsypv atherosclerotic disease. No aneurysm. Lymph nodes: No pathologically enlarged lymph nodes. Kidneys and ureters: Small calculus within RIGHT kidney. Stomach and bowel: Large amount of stool within visualized colon. IMPRESSION: 1. Probable bibasilar pneumonia. Followup to resolution to exclude underlying pathology. 2. Incidental/non-acute findings are described above.
[2018-01-04 07:32] LABS: SQUAMOUS EPITHIAL < 1 /hpf (0-5); URINE BACTERIA RARE (<OCC); URINE BILIRUBIN NEGATIVE (NEGATIVE); URINE BLOOD 1+ (NEGATIVE); URINE CLARITY Clear (Clear); URINE COLOR Yellow (YELLOW); URINE GLUCOSE (UA) NORMAL (Normal); URINE LEUKOCYTE ESTERASE TRACE Leu/uL (Negative); URINE PROTEIN NEGATIVE (NEGATIVE); URINE UROBILINOGEN NORMAL mg/dL (0.2-1.0)
[2018-01-04 08:42] VITALS: RESP 20
[2018-01-04] MEDS ORDERED: Piperacill/Tazo 3.375gm in Dex 3.375 GM/50 ML BAG IVPB SCH (09:00)
[2018-01-04] MEDS: Piperacillin/Tazobact 3.375 GM in Sodium Chloride 0.9% 100 ML IVPB SCH ×2 (09:58→17:24)
[2018-01-04] MEDS ORDERED: Ergocalciferol 50,000 Intl Units Cap PO SCH (10:00)
--- NOTE | 2018-01-04 11:10 | RAD ---
PROCEDURE: CHEST RADIOGRAPH, 1 VIEW HISTORY: AMS COMPARISON: 12/11/2017. FINDINGS: LUNGS: There are low lung volumes and bibasilar atelectasis. No focal consolidation. PLEURA: No pneumothorax or pleural fluid seen. CARDIOVASCULAR: The heart is normal in size. Atherosclerotic aortic arch calcifications are present. OSSEOUS STRUCTURES: No significant abnormalities. VISUALIZED UPPER ABDOMEN: Normal. OTHER FINDINGS: None. IMPRESSION: No active pulmonary disease.
[2018-01-05] MEDS: Piperacillin/Tazobact 3.375 GM in Sodium Chloride 0.9% 100 ML IVPB SCH ×3 (01:01→17:39)
--- NOTE | 2018-01-05 11:54 | CP.PCM.HP ---
History of Present Illness - History of Present Illness History of Present Illness: pt came toer for fever and has bilateral pnumonia Present on Admission - Present on Admission Any Indicators Present on Admission: No Review of Systems - Review of Systems Systems not reviewed;Unavailable: Acuity of Condition - Constitutional Constitutional: Anorexia, Fatigue, Fever - EENT Eyes: As Per HPI Ears: As Per HPI Nose/Mouth/Throat: As Per HPI - Cardiovascular Additional comments: ht murmur - Respiratory Respiratory: Cough - Gastrointestinal Gastrointestinal: As Per HPI - Genitourinary Genitourinary: As Per HPI - Reproductive: Male Reproductive:Male: As Per HPI - Musculoskeletal Musculoskeletal: As Per HPI, Limited Range of Motion, Muscle Weakness - Integumentary Integumentary: As Per HPI - Neurological Neurological: Abnormal Gait, Abnormal Movements, Abnormal Speech, Behavioral Changes, Weakness Additional comments: retardation - Psychiatric Psychiatric: As Per HPI - Endocrine Endocrine: As Per HPI Past Patient History - Infectious Disease Hx of Infectious Diseases: C.diff - Past Medical History & Family History Past Medical History?: Yes - Past Social History Smoking Status: Never Smoked - CARDIAC Hx Cardiac Disorders: Yes (STENT) Hx Hypertension: Yes - PULMONARY Hx Pneumonia: Yes - NEUROLOGICAL Hx Neurological Disorder: Yes Other/Comment: hx down syndrome - HEENT Hx HEENT Problems: No - RENAL Hx Chronic Kidney Disease: No - ENDOCRINE/METABOLIC Hx Hypothyroidism: Yes - HEMATOLOGICAL/ONCOLOGICAL Hx Anemia: Yes - INTEGUMENTARY Hx Dermatological Problems: No - MUSCULOSKELETAL/RHEUMATOLOGICAL Hx Musculoskeletal Disorders: No Hx Falls: No - GASTROINTESTINAL Hx Gastrointestinal Disorders: Yes Other/Comment: hx obstinal obstruction had surgery - GENITOURINARY/GYNECOLOGICAL Hx Genitourinary Disorders: Yes Other/Comment: Hx: pyelonephritis Incontinent of urine. 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 - ANESTHESIA Hx Anesthesia: Yes Hx Anesthesia Reactions: No Hx Malignant Hyperthermia: No Has any member of the family had a problem w/ anesthesia?: No Meds Allergies/Adverse Reactions: Allergies Allergy/AdvReac Type Severity Reaction Status Date / Time No Known Allergies Allergy Verified 01/03/18 21:54 Physical Exam - Constitutional Appears: Non-toxic - Head Exam Head Exam: ATRAUMATIC - Eye Exam Eye Exam: Normal appearance Pupil Exam: NORMAL ACCOMODATION - ENT Exam ENT Exam: Mucous Membranes Dry - Neck Exam Neck exam: Positive for: Normal Inspection - Respiratory Exam Respiratory Exam: Decreased Breath Sounds - Cardiovascular Exam Cardiovascular Exam: Systolic Murmur - GI/Abdominal Exam GI & Abdominal Exam: Normal Bowel Sounds - Rectal Exam Rectal Exam: NORMAL INSPECTION - Extremities Exam Extremities exam: Positive for: normal inspection - Back Exam Back exam: NORMAL INSPECTION - Neurological Exam Neurological exam: Altered - Psychiatric Exam Psychiatric exam: Flat Affect - Skin Skin Exam: Pallor Results - Vital Signs Recent Vital Signs: Last Vital Signs Temp 98.3 F 01/05/18 00:00 Pulse 56 L 01/05/18 00:00 Resp 20 01/05/18 00:00 BP 113/58 L 01/05/18 00:00 Pulse Ox 95 01/05/18 00:00 - Labs Result Diagrams: 01/03/18 22:16 01/03/18 22:16 Assessment & Plan - Assessment and Plan (Free Text) Assessment: ac bilateral pnumonia down syndrome cackectic generalised weekness Plan: as per orders - Date & Time Date: 01/05/18 Time: 11:58
[2018-01-05 15:01] LABS: FREE T4 1.35 ng/dL (0.78-2.19)
[2018-01-06] MEDS: Piperacillin/Tazobact 3.375 GM in Sodium Chloride 0.9% 100 ML IVPB SCH ×3 (00:52→17:50)
[2018-01-06 08:04] LABS: BASO % 0.5 % (0.0-2.0); EOS % 0.3 % (0.0-4.0); LYMPH # 1.4 K/uL (1.0-4.3); LYMPH % 19.7 % (20.0-40.0); MEAN CELL VOLUME 98.6 fL (80.0-94.0); MEAN CORPUSCULAR HEMOGLOBIN 34.5 pg (27.0-31.0); MEAN PLATELET VOLUME 6.7 fL (7.2-11.7); MONO # 0.3 K/uL (0.0-0.8); MONO % 4.5 % (0.0-10.0); NEUT # 5.4 K/uL (1.8-7.0); RBC 3.57 Mil/uL (4.40-5.90); RED CELL DISTRIBUTION WIDTH 14.2 % (11.5-14.5); WHITE BLOOD COUNT 7.1 K/uL (4.8-10.8)
[2018-01-06 08:13] LABS: ALBUMIN 3.9 g/dL (3.5-5.0); ALT/SGPT 12 U/L (21-72); AST/SGOT 70 U/L (17-59); BLOOD UREA NITROGEN 10 mg/dL (9-20); CALCIUM 8.5 mg/dl (8.6-10.4); GFR AFRICAN-AMERICAN > 60; GFR NON-AFRICAN AMERICAN > 60
[2018-01-06 08:20] LABS: HEMOGLOBIN 12.3 g/dL (12.0-18.0)
--- NOTE | 2018-01-06 18:20 | CP.PCM.PN ---
Subjective - Date & Time of Evaluation Date of Evaluation: 01/06/18 Time of Evaluation: 18:17 - Subjective Subjective: on bed no distress brother by bed side afebril today Objective - Vital Signs/Intake and Output Vital Signs (last 24 hours): Temp Pulse Resp BP Pulse Ox 98.5 F 61 20 103/60 99 01/06/18 16:00 01/06/18 16:00 01/06/18 16:00 01/06/18 16:00 01/06/18 16:00 Intake and Output: 01/06/18 01/06/18 06:59 18:59 Intake Total 340 780 Balance 340 780 - Medications Medications: Current Medications Ergocalciferol (Drisdol 50,000 Intl Units Cap) 1 cap PO QWK [facility] Last Admin: 01/04/18 09:59 Dose: 1 cap Heparin Sodium (Porcine) (Heparin) 5,000 units SC Q12 [facility] Last Admin: 01/06/18 09:42 Dose: 5,000 units Piperacillin Sod/Tazobactam (Sod 3.375 gm/ Sodium Chloride) 100 mls @ 100 mls/ hr IVPB Q8H [facility] PRN Reason: Protocol Last Admin: 01/06/18 09:38 Dose: 100 mls/hr Vitamin B Complex/Folic Acid (Berroca) 1 tab PO DAILY [facility] Last Admin: 01/06/18 10:00 Dose: 1 tab - Labs Labs: 01/06/18 07:51 01/06/18 07:51 PT 11.7 SECONDS (9.7-12.2) 01/03/18 22:16 INR 1.1 01/03/18 22:16 APTT 35 SECONDS (21-34) H 01/03/18 22:16 - Constitutional Appears: Non-toxic - Head Exam Head Exam: ATRAUMATIC - Eye Exam Eye Exam: Normal appearance Pupil Exam: NORMAL ACCOMODATION - ENT Exam ENT Exam: Mucous Membranes Moist - Neck Exam Neck Exam: Full ROM - Respiratory Exam Respiratory Exam: Decreased Breath Sounds - Cardiovascular Exam Cardiovascular Exam: REGULAR RHYTHM - GI/Abdominal Exam GI & Abdominal Exam: Normal Bowel Sounds - Rectal Exam Rectal Exam: NORMAL INSPECTION - Exam Exam: NORMAL INSPECTION - Extremities Exam Extremities Exam: Normal Inspection Additional comments: restricted movements all ext - Back Exam Back Exam: NORMAL INSPECTION Assessment and Plan - Assessment and Plan (Free Text) Assessment: ac salvatore pnumonia improving mental retardation contracted bed bound dowen syndrome Plan: cont as per orders
[2018-01-07] MEDS: Piperacillin/Tazobact 3.375 GM in Sodium Chloride 0.9% 100 ML IVPB SCH ×3 (00:46→16:24)
--- NOTE | 2018-01-07 10:04 | CP.PCM.PN ---
Subjective - Date & Time of Evaluation Date of Evaluation: 01/07/18 Time of Evaluation: 10:02 - Subjective Subjective: pt seen in bed comfortable afebril no cough Objective - Vital Signs/Intake and Output Vital Signs (last 24 hours): Temp Pulse Resp BP Pulse Ox 98.4 F 75 20 110/74 98 01/07/18 08:47 01/07/18 08:47 01/07/18 08:47 01/07/18 08:47 01/07/18 08:47 Intake and Output: 01/07/18 01/07/18 06:59 18:59 Intake Total 650 Balance 650 - Medications Medications: Current Medications Ergocalciferol (Drisdol 50,000 Intl Units Cap) 1 cap PO QWK [facility] Last Admin: 01/04/18 09:59 Dose: 1 cap Piperacillin Sod/Tazobactam (Sod 3.375 gm/ Sodium Chloride) 100 mls @ 100 mls/ hr IVPB Q8H [facility] PRN Reason: Protocol Last Admin: 01/07/18 00:46 Dose: 100 mls/hr Vitamin B Complex/Folic Acid (Berroca) 1 tab PO DAILY [facility] Last Admin: 01/06/18 10:00 Dose: 1 tab - Labs Labs: 01/06/18 07:51 01/06/18 07:51 PT 11.7 SECONDS (9.7-12.2) 01/03/18 22:16 INR 1.1 01/03/18 22:16 APTT 35 SECONDS (21-34) H 01/03/18 22:16 - Constitutional Appears: Non-toxic - Head Exam Head Exam: ATRAUMATIC - Eye Exam Eye Exam: EOMI Pupil Exam: NORMAL ACCOMODATION - ENT Exam ENT Exam: Mucous Membranes Moist - Neck Exam Neck Exam: Full ROM - Respiratory Exam Respiratory Exam: Clear to Ausculation Bilateral - Cardiovascular Exam Cardiovascular Exam: REGULAR RHYTHM - GI/Abdominal Exam GI & Abdominal Exam: Normal Bowel Sounds - Extremities Exam Extremities Exam: Normal Capillary Refill - Back Exam Back Exam: NORMAL INSPECTION - Neurological Exam Neurological Exam: Alert - Psychiatric Exam Psychiatric exam: Normal Affect - Skin Skin Exam: Normal Color Assessment and Plan - Assessment and Plan (Free Text) Assessment: ac bilateral pnumonia improved dowen syndrome as retaded generalised weekness Plan: will d/c home on oral antibiotic and pt at home and all his home med
--- NOTE | 2018-01-07 13:07 | CP.PCM.PN ---
Subjective - Date & Time of Evaluation Date of Evaluation: 01/07/18 Time of Evaluation: 13:05 - Subjective Subjective: PT SEEN THIS MORNING BY DR. VILLALBA AND CLEARED FOR D/C HOME TODAY WITH ABX. D/ C PAPERWORK AND F/U INFORMATION DISCUSSED WITH DR. VILLALBA. PER HER REQUEST, RX FOR LEVAQUIN 500 MG PO DAILY X7 DAYS GIVEN TO PT. TO CONTINUE OTHER HOME MEDS USUAL. PT TO F/U WITH DR. VILLALBA IN THE OFFICE NEXT WEEK. NO FURTHER ORDERS. SEE BELOW FOR D/C PLAN: -FOLLOW UP WITH DR. VILLALBA IN THE OFFICE WITHIN 1 WEEK---CALL THE OFFICE FOR AN APPOINTMENT TIME. -CONTINUE HOME MEDICATIONS USUAL. -YOU HAVE BEEN PRESCRIBED AN ANTIBIOTIC REQUESTED BY DR. VILLALBA; TAKE EXACTLY PRESCRIBED: 1) LEVAQUIN 500 MG (TAKE 1 TABLET) BY MOUTH ONCE A DAY FOR 7 DAYS (START ON 01/08/18 AND LAST DOSE TO BE TAKEN ON 01/15/18). -IF YOU HAVE ANY FURTHER CONCERNS OR QUESTIONS, CONTACT DR. VILLALBA'S OFFICE. Objective - Vital Signs/Intake and Output Vital Signs (last 24 hours): Temp Pulse Resp BP Pulse Ox 98.4 F 75 20 110/74 98 01/07/18 08:47 01/07/18 08:47 01/07/18 08:47 01/07/18 08:47 01/07/18 08:47 Intake and Output: 01/07/18 01/07/18 06:59 18:59 Intake Total 650 Balance 650 - Medications Medications: Current Medications Ergocalciferol (Drisdol 50,000 Intl Units Cap) 1 cap PO QWK [facility] Last Admin: 01/04/18 09:59 Dose: 1 cap Piperacillin Sod/Tazobactam (Sod 3.375 gm/ Sodium Chloride) 100 mls @ 100 mls/ hr IVPB Q8H [facility] PRN Reason: Protocol Last Admin: 01/07/18 10:27 Dose: 100 mls/hr Vitamin B Complex/Folic Acid (Berroca) 1 tab PO DAILY [facility] Last Admin: 01/07/18 10:27 Dose: 1 tab - Labs Labs: 01/06/18 07:51 01/06/18 07:51 PT 11.7 SECONDS (9.7-12.2) 01/03/18 22:16 INR 1.1 01/03/18 22:16 APTT 35 SECONDS (21-34) H 01/03/18 22:16
[2018-01-07 18:51] VITALS: BP 121/84; PULSE 60; TEMP 99; O2SAT 96
== END 2018-01-07 20:00 | disposition home or self-care (01) | DRG 89 ==
LOC: C.ER 21:33 → C.9E 23:04 → C.3T 01-04 02:03 → C.3D 01-05 08:37 → C.3T 01-05 08:39
PROVIDERS: ADMIT Internal Medicine; ATTEND Internal Medicine
DX: J18.9 Pneumonia, unspecified organism (principal); I35.0 Nonrheumatic aortic (valve) stenosis; Q90.9 Down syndrome, unspecified; E03.9 Hypothyroidism, unspecified; F79 Unspecified intellectual disabilities; I10 Essential (primary) hypertension; Z74.01 Bed confinement status; Z87.01 Personal history of pneumonia (recurrent)